=== PATIENT | male | born 1970 | race African-American/Black ===

== ENCOUNTER 2017-11-29 21:38 | Emergency (ER) | payer BC, OTHER ==
[~2017-11-29] VITALS: Ht 177.8 cm; Wt 117.9 kg
[~2017-11-29 21:38] MED LIST: BUPR150T10 PO; DIPH1TAB70 PO; FERR1TAB44 PO; FOLI1TAB16 PO; HYDR-3974 PO; LISI10TA5 PO; MESA800T PO; MONT10TA22 PO; PANT40TA4 PO; POTA10TA15 PO; PRED20TA PO; QUET25TA PO; SULF500T PO
--- NOTE | 2017-11-29 23:37 | NUR ---
PT REFUSED CT. MADE AWARE.
[2017-11-29] MEDS ORDERED: ONDANSETRON 4 MG TAB.RAPDIS ONE (23:40)
[2017-11-29] MEDS ORDERED: HYDROMORPHONE HCL 2 MG TABLET ONE (23:40)
[2017-11-29 23:43] LABS: BASOPHILS % (AUTO) 0.6 % (0.0-2.0); EOSINOPHILS % (AUTO) 3.3 % (0.0-6.0); HEMATOCRIT 36 % (39-51); HEMOGLOBIN 12.5 g/dL (13.5-17.5); LYMPHOCYTES # (AUTO) 1.8 /CMM (0.8-4.8); LYMPHOCYTES % (AUTO) 22.5 % (20.0-44.0); MEAN CORPUSCULAR HGB CONC 35 g/dl (31.0-36.0); MEAN CORPUSCULAR VOLUME 99 fL (80-96); MONOCYTES # (AUTO) 0.6 /CMM (0.1-1.30); MONOCYTES % (AUTO) 7.8 % (2.0-12.0); NEUTROPHILS # (AUTO) 5.2 /CMM (1.8-8.9); NEUTROPHILS % (AUTO) 65.8 % (43.0-81.0); PLATELET COUNT (AUTO) 242 /CMM (150-450); RDW COEFFICIENT OF VARIATION 14.3 (11.5-15.0); RED BLOOD CELL COUNT(AUTO) 3.66 MIL/uL (4.5-6.0)
[2017-11-29 23:50] VITALS: BP 134/92
[2017-11-29 23:54] LABS: CALCIUM, SERUM 9.1 mg/dL (8.5-10.1); POTASSIUM 3.7 mmol/L (3.5-5.1)
[2017-11-29] MEDS: HYDROMORPHONE HCL 2 MG TABLET PO PRN (23:54)
[2017-11-29] MEDS: ONDANSETRON 4 MG TAB.RAPDIS SL ONE (23:54)
--- NOTE | 2017-11-29 23:54 | NUR ---
PT REFUSED ALL MEDICATIONS. MADE AWARE. MEDICATIONS WASTED PER PROTOCOL WITH ENRRIQUE HOLLINS WITNESS
[2017-11-30 00:12] LABS: ALBUMIN 3.2 g/dL (3.4-5.0); BILIRUBIN,DIRECT 0.1 mg/dL (0.0-0.2); BILIRUBIN,TOTAL 0.3 mg/dL (0.2-1.0); TOTAL PROTEIN, SERUM 7.5 g/dL (6.4-8.2)
[2017-11-30 00:15] LABS: INR 0.95 (0.87-1.13)
--- NOTE | 2017-11-30 01:38 | NUR ---
pt accepted to [facility] Dr srinivasan, . Take to er. then room 605-a
--- NOTE | 2017-11-30 01:40 | NUR ---
REPORT GIVEN TO MARINA FOR ANGEL AT [facility]
== END 2017-11-30 03:47 | disposition short-term general hospital (02) ==
LOC: ER 21:40
DX: K50.911 Crohn's disease, unspecified, with rectal bleeding (principal); G89.29 Other chronic pain; D64.9 Anemia, unspecified; I10 Essential (primary) hypertension; F10.10 Alcohol abuse, uncomplicated; R79.1 Abnormal coagulation profile; F17.200 Nicotine dependence, unspecified, uncomplicated; Z88.8 Allergy status to other drugs, medicaments and biological substances; Z88.5 Allergy status to narcotic agent; Z60.2 Problems related to living alone; Z98.890 Other specified postprocedural states
CPT/HCPCS: 36415; 80048-TC; 80076-TC; 83690-TC; 85025-TC; 85730-TC; 86850-TC; A4606; Q0162; Z7610

== ENCOUNTER 2022-02-10 14:40 | Emergency (ER) | payer OTHER ==
[~2022-02-10] VITALS: Ht 177.8 cm; Wt 111.1 kg
[~2022-02-10 14:40] MED LIST changes: +BUPR-54 PO; +FERR325T23 PO; +FOLI0.8T3 PO; +HYDR-3972 PO; +LISI10TA29 PO; -LISI10TA5 PO; +MESA800T9 PO; -PANT40TA4 PO; +PANT40TA49 PO; +POTA10CA43 PO; +QUET100T PO; +SULF500T8 PO
--- NOTE | 2022-02-10 14:54 | NUR ---
TO ER BED 15. BIBS C/O RECTAL BLEEDING AND HEMATEMESIS X 4DAYS. VITALS ARE WITHIN NORMALLIMITS, NO RESP DISTRES NOTED.
--- NOTE | 2022-02-10 16:26 | NUR ---
CHAPERONED DURING PT RECTAL EXAM
[2022-02-10] MEDS ORDERED: IV NS 0.9% 1,000 ML BAG IV ONE (16:30)
[2022-02-10] MEDS ORDERED: ONDANSETRON HCL/PF 4 MG/2 ML VIAL IVP ONE (16:30)
[2022-02-10] MEDS ORDERED: CT SWABBABLE VALVE TRANS SET 1 EA INFUS.SET MC ONE (16:55)
[2022-02-10] MEDS ORDERED: IOHEXOL-300 100 ML VIAL IV ONE (16:55)
[2022-02-10] MEDS ORDERED: IV NS 0.9% 250 ML IV ONE (16:55)
[2022-02-10] MEDS ORDERED: ONDANSETRON HCL/PF 4 MG/2 ML VIAL ONE ×2 (17:32→17:47)
--- NOTE | 2022-02-10 18:01 | NUR ---
PT TAKEN TO CT VIA WHEELCHAIR
[2022-02-10 18:03] LABS: BASOPHILS # (AUTO) 0.1 K/uL (0.0-0.2); BASOPHILS % (AUTO) 0.8 % (0.0-2.0); EOSINOPHILS % (AUTO) 4.2 % (0.0-6.0); HEMATOCRIT 33 % (39-51); HEMOGLOBIN 11.2 g/dL (13.5-17.5); LYMPHOCYTES # (AUTO) 2.5 K/uL (0.8-4.8); LYMPHOCYTES % (AUTO) 24.7 % (20.0-44.0); MEAN CORPUSCULAR HGB CONC 34 g/dl (31.0-36.0); MEAN CORPUSCULAR VOLUME 99 fL (80-96); MONOCYTES # (AUTO) 0.9 K/uL (0.1-1.30); MONOCYTES % (AUTO) 9.1 % (2.0-12.0); NEUTROPHILS # (AUTO) 6.1 K/uL (1.8-8.9); NEUTROPHILS % (AUTO) 61.2 % (43.0-81.0); PLATELET COUNT (AUTO) 333 K/uL (150-450); RED BLOOD CELL COUNT(AUTO) 3.38 MIL/uL (4.5-6.0); WHITE BLOOD COUNT (AUTO) 9.9 K/uL (4.3-11.0)
[2022-02-10 18:19] LABS: ALBUMIN 3.4 g/dL (3.4-5.0); BILIRUBIN,DIRECT 0.1 mg/dL (0.0-0.2); BILIRUBIN,TOTAL 0.4 mg/dL (0.2-1.0); CALCIUM, SERUM 8.8 mg/dL (8.5-10.1); CREATININE 1.5 mg/dL (0.6-1.3); POTASSIUM 3.8 mmol/L (3.5-5.1); TOTAL PROTEIN, SERUM 8.4 g/dL (6.4-8.2)
[2022-02-10] MEDS ORDERED: HYDROMORPHONE 1 MG/1 ML DISP.SYRIN ONE (18:29)
[2022-02-10] MEDS ORDERED: HYDROMORPHONE 1 MG/1 ML DISP.SYRIN IV ONE ×2 (18:30→21:00)
[2022-02-10] MEDS ORDERED: diphenhydrAMINE HCL 50 MG/ML VIAL ONE ×2 (18:37→21:03)
--- NOTE | 2022-02-10 18:50 | NUR ---
PATIENT TAKEN FOR CT VIA [facility]
[2022-02-10] MEDS ORDERED: diphenhydrAMINE HCL 50 MG/ML VIAL IV ONE ×2 (19:00→21:00)
[2022-02-10 20:40] LABS: BILIRUBIN,URINE MODERATE (NEGATIVE); COLOR,URINE RED (YELLOW); LEUKOCYTE ESTERASE ,URINE MODERATE (NEGATIVE); NITRITE, URINE POSITIVE (NEGATIVE); PH,URINE 6.5 (5.0-8.0); PROTEIN,URINE >=300 mg/dl (NEGATIVE); UGLUCOSE 100 MG/DL mg/dL (NEGATIVE)
[2022-02-10] MEDS ORDERED: PANTOPRAZOLE 40 MG VIAL ONE (20:50)
[2022-02-10] MEDS ORDERED: CIPR500T5 PO (20:55)
[2022-02-10] MEDS ORDERED: HYDR-4209 PO (20:55)
[2022-02-10] MEDS ORDERED: PANTOPRAZOLE 40 MG VIAL IV ONE (21:00)
[2022-02-10 21:01] LABS: BACTERIA,URINE Many /HPF (None Seen); SQUAMOUS EPITHELIAL CELL,UR Moderate /HPF (None Seen)
[2022-02-10] MEDS ORDERED: diphenhydrAMINE HCL ELIX 25 MG/10 ML UDC ONE (21:03)
--- NOTE | 2022-02-10 21:15 | NUR ---
IV removed. Catheter intact and site benign. Pressure and 4x4 applied to site. No bleeding noted.
--- NOTE | 2022-02-10 21:40 | NUR ---
Patient discharged to home in stable condition. Written and verbal after care instructions given. Patient verbalizes understanding of instruction.
[2022-02-11 00:28] VITALS: BP 139/80
== END 2022-02-11 00:28 | disposition home or self-care (01) ==
LOC: ER 14:47
DX: N39.0 Urinary tract infection, site not specified (principal); K62.5 Hemorrhage of anus and rectum; R10.9 Unspecified abdominal pain; K51.90 Ulcerative colitis, unspecified, without complications; I10 Essential (primary) hypertension; F17.200 Nicotine dependence, unspecified, uncomplicated; Z88.8 Allergy status to other drugs, medicaments and biological substances; Z60.2 Problems related to living alone; Z79.899 Other long term (current) drug therapy
CPT/HCPCS: 36415; 74177; 80048; 80076; 81001; 83690; 85025; 87077; 87086; 87186; 96361; 96374; 96375; 96376; 99285; C9113; J1170; J1200 ×2; J2405; J7030; J7050; Q9967; Q0163

== ENCOUNTER 2022-05-16 11:45 | Emergency (ER) | payer OTHER ==
[~2022-05-16] VITALS: Ht 177.8 cm; Wt 113.4 kg
[~2022-05-16 11:45] MED LIST changes: +CIPR500T5 PO; -FOLI0.8T3 PO; +HYDR-4209 PO
[2022-05-16] MEDS ORDERED: ONDANSETRON HCL/PF 4 MG/2 ML VIAL IVP ONE (13:00)
[2022-05-16] MEDS ORDERED: IV NS 0.9% 1,000 ML BAG IV ONE (13:00)
[2022-05-16] MEDS ORDERED: PANTOPRAZOLE 40 MG VIAL IV ONE (13:00)
[2022-05-16] MEDS ORDERED: PANTOPRAZOLE 40 MG VIAL ONE (13:19)
[2022-05-16] MEDS ORDERED: ONDANSETRON HCL/PF 4 MG/2 ML VIAL ONE (13:19)
--- NOTE | 2022-05-16 13:29 | NUR ---
18G STARTED LATANYA PATENT NO S/S OF INFILTRATION
--- NOTE | 2022-05-16 13:30 | NUR ---
LABS DRAWN AND SENT TO LAB
[2022-05-16] MEDS ORDERED: HYDROMORPHONE 1 MG/1 ML DISP.SYRIN ONE ×2 (13:45→18:30)
[2022-05-16] MEDS ORDERED: diphenhydrAMINE HCL 25 MG CAPSULE ONE (13:45)
[2022-05-16 13:55] LABS: BASOPHILS % (AUTO) 0.5 % (0.0-2.0); EOSINOPHILS % (AUTO) 4.3 % (0.0-6.0); HEMATOCRIT 29 % (39-51); HEMOGLOBIN 9.7 g/dL (13.5-17.5); LYMPHOCYTES # (AUTO) 1.6 K/uL (0.8-4.8); LYMPHOCYTES % (AUTO) 21.6 % (20.0-44.0); MEAN CORPUSCULAR HGB CONC 33 g/dl (31.0-36.0); MEAN CORPUSCULAR VOLUME 97 fL (80-96); MONOCYTES # (AUTO) 0.6 K/uL (0.1-1.30); NEUTROPHILS # (AUTO) 4.7 K/uL (1.8-8.9); NEUTROPHILS % (AUTO) 65.6 % (43.0-81.0); PLATELET COUNT (AUTO) 302 K/uL (150-450); RED BLOOD CELL COUNT(AUTO) 3.03 MIL/uL (4.5-6.0); WHITE BLOOD COUNT (AUTO) 7.2 K/uL (4.3-11.0)
[2022-05-16] MEDS ORDERED: diphenhydrAMINE HCL 25 MG CAPSULE PO ONE (14:00)
[2022-05-16] MEDS ORDERED: HYDROMORPHONE 1 MG/1 ML DISP.SYRIN IV ONE ×2 (14:00→18:30)
[2022-05-16 14:07] LABS: CREATININE 1.4 mg/dL (0.6-1.3); POTASSIUM 3.4 mmol/L (3.5-5.1)
[2022-05-16 14:17] LABS: ALBUMIN 3.2 g/dL (3.4-5.0); BILIRUBIN,DIRECT 0.1 mg/dL (0.0-0.2); BILIRUBIN,TOTAL 0.2 mg/dL (0.2-1.0); TOTAL PROTEIN, SERUM 8.1 g/dL (6.4-8.2)
[2022-05-16] MEDS ORDERED: IV NS 0.9% 250 ML IV ONE (14:35)
[2022-05-16] MEDS ORDERED: CT SWABBABLE VALVE TRANS SET 1 EA INFUS.SET MC ONE (14:35)
[2022-05-16] MEDS ORDERED: IOHEXOL-300 100 ML VIAL IV ONE (14:35)
--- NOTE | 2022-05-16 14:43 | NUR ---
PT BEING TAKEN TO CT
[2022-05-16] MEDS ORDERED: diphenhydrAMINE HCL 50 MG/ML VIAL IV ONE (16:30)
[2022-05-16] MEDS ORDERED: diphenhydrAMINE HCL 50 MG/ML VIAL ONE (16:43)
[2022-05-16 18:22] LABS: OCCULT BLOOD STOOL POSITIVE (NEGATIVE)
[2022-05-16] MEDS ORDERED: HYDR4TAB4 PO (18:30)
[2022-05-16 19:05] VITALS: BP 134/76
== END 2022-05-16 19:08 | disposition home or self-care (01) ==
LOC: ER 11:57
DX: R10.84 Generalized abdominal pain (principal); I10 Essential (primary) hypertension; F17.200 Nicotine dependence, unspecified, uncomplicated; Z88.8 Allergy status to other drugs, medicaments and biological substances; Z60.2 Problems related to living alone; Z79.899 Other long term (current) drug therapy
CPT/HCPCS: 36569; 99285; 73130; 74177; 85025; 80048; 87045; 87015; 83690; 80076; 82272; 36415; 87493; 85730; 96376; 96361; 96374; 96375; 87427 ×3; Q0163; J1200; J2405; J7030; J7050; C9113; Q9967; J1170 ×2

== ENCOUNTER 2022-09-23 08:59 | Emergency (ER) | payer OTHER ==
[~2022-09-23] VITALS: Ht 177.8 cm; Wt 112.9 kg
[~2022-09-23 08:59] MED LIST changes: +HYDR4TAB4 PO
--- NOTE | 2022-09-23 09:20 | NUR ---
Patient AOx4 able to provide her own medical concerns. c/o abdominal and rectal pain, rectal bleed. Patient in station #12, with no signs of distress or discomfort, states pain is 10/10. Able to ambulate.
[2022-09-23] MEDS ORDERED: ONDANSETRON HCL/PF 4 MG/2 ML VIAL ONE (10:29)
[2022-09-23] MEDS ORDERED: HYDROMORPHONE 1 MG/1 ML DISP.SYRIN ONE (10:29)
[2022-09-23] MEDS ORDERED: diphenhydrAMINE HCL 50 MG CAPSULE ONE (10:30)
[2022-09-23] MEDS ORDERED: diphenhydrAMINE HCL 50 MG/ML VIAL IV ONE (10:30)
[2022-09-23] MEDS ORDERED: HYDROMORPHONE 1 MG/1 ML DISP.SYRIN IV ONE (10:30)
[2022-09-23] MEDS ORDERED: FAMOTIDINE/PF INJ 20 MG/2 ML VIAL IV ONE ×2 (10:30→10:31)
[2022-09-23] MEDS ORDERED: ONDANSETRON HCL/PF 4 MG/2 ML VIAL IVP ONE (10:30)
[2022-09-23] MEDS ORDERED: IV NS 0.9% 1,000 ML BAG IV ONE (10:30)
[2022-09-23] MEDS ORDERED: diphenhydrAMINE HCL 50 MG/ML VIAL ONE (10:31)
--- NOTE | 2022-09-23 10:35 | NUR ---
IV NS 0.9 started, NO signs of infiltration, no pain on site
[2022-09-23 10:40] LABS: BASOPHILS % (AUTO) 0.1 % (0.0-2.0); EOSINOPHILS % (AUTO) 3.6 % (0.0-6.0); HEMATOCRIT 35 % (39-51); HEMOGLOBIN 11.3 g/dL (13.5-17.5); LYMPHOCYTES # (AUTO) 2.5 K/uL (0.8-4.8); LYMPHOCYTES % (AUTO) 32.5 % (20.0-44.0); MEAN CORPUSCULAR HGB CONC 32 g/dl (31.0-36.0); MEAN CORPUSCULAR VOLUME 97 fL (80-96); MONOCYTES # (AUTO) 0.8 K/uL (0.1-1.30); MONOCYTES % (AUTO) 9.9 % (2.0-12.0); NEUTROPHILS # (AUTO) 4.1 K/uL (1.8-8.9); NEUTROPHILS % (AUTO) 53.9 % (43.0-81.0); PLATELET COUNT (AUTO) 272 K/uL (150-450); RED BLOOD CELL COUNT(AUTO) 3.63 MIL/uL (4.5-6.0); WHITE BLOOD COUNT (AUTO) 7.7 K/uL (4.3-11.0)
[2022-09-23 11:04] LABS: CALCIUM, SERUM 8.9 mg/dL (8.5-10.1); CARBON DIOXIDE 24 mmol/L (21-32); CHLORIDE 108 mmol/L (98-107); CREATININE 1.2 mg/dL (0.6-1.3); GLUCOSE 77 mg/dL (74-106); SODIUM SERUM 140 mmol/L (136-145); UREA NITROGEN, BLOOD 14 mg/dL (7-18)
[2022-09-23 11:10] LABS: ALANINE AMINOTRANSFERASE 25 U/L (12-78); ALBUMIN 3.2 g/dL (3.4-5.0); ALKALINE PHOSPHATASE 85 U/L (46-116); ASPARTATE AMINOTRANSFERASE 16 U/L (15-37); BILIRUBIN,DIRECT 0.1 mg/dL (0.0-0.2); BILIRUBIN,TOTAL 0.2 mg/dL (0.2-1.0); LIPASE 132 U/L (73-393); TOTAL PROTEIN, SERUM 8.1 g/dL (6.4-8.2)
[2022-09-23] MEDS ORDERED: HYDR28.32 TP (11:36)
[2022-09-23] MEDS ORDERED: ASPI-1420 PO (11:36)
[2022-09-23] MEDS ORDERED: LORA-259 PO (11:36)
[2022-09-23] MEDS ORDERED: APIX5TAB PO (11:36)
[2022-09-23] MEDS ORDERED: METO25TA20 PO (11:36)
[2022-09-23] MEDS ORDERED: BUSP5TAB3 PO (11:36)
--- NOTE | 2022-09-23 12:01 | NUR ---
IV removed. Catheter intact and site benign. Pressure and 4x4 applied to site. No bleeding noted.
[2022-09-23 12:05] VITALS: BP 138/86
== END 2022-09-23 12:06 | disposition home or self-care (01) ==
LOC: ER 09:06
DX: R10.84 Generalized abdominal pain (principal); I10 Essential (primary) hypertension; Z88.8 Allergy status to other drugs, medicaments and biological substances; Z79.899 Other long term (current) drug therapy
CPT/HCPCS: 99285; 74176; 96374; 96375; 96361; 93005; 85025; 80048; 83690; 80076; 36415; 84484; J1200; J3490; J2405; J7030; J1170; Q0163

== ENCOUNTER 2022-09-24 12:35 | Emergency (ER) | payer OTHER ==
[~2022-09-24] VITALS: Ht 175.3 cm; Wt 113.4 kg
[~2022-09-24 12:35] MED LIST changes: +APIX5TAB PO; +ASPI-1420 PO; -BUPR-54 PO; +BUSP5TAB3 PO; -CIPR500T5 PO; -DIPH1TAB70 PO; -FERR325T23 PO; -HYDR-3972 PO; -HYDR-3974 PO; -HYDR-4209 PO; +HYDR28.32 TP; -HYDR4TAB4 PO; -LISI10TA29 PO; +LORA-259 PO; -MESA800T9 PO; +METO25TA20 PO; -MONT10TA22 PO; -POTA10CA43 PO; -POTA10TA15 PO; -PRED20TA PO; -QUET100T PO; -SULF500T PO; -SULF500T8 PO
--- NOTE | 2022-09-24 12:50 | NUR ---
PT STATED THAT HE CAN ONLY RECIEVE IV'S ULTRASOUND, ATTEMPTED TO INSERT AN IV VIA ULTRASOUND. WHILE ATTEMPTING TO INSERT A LINE PT JERKED UP AND ALMOST CAUSING A NEEDLE STICK. DR DOMINGO NOTIFIED. LAB WILL DRAW WITH BUTTERFLY NEEDLE, LAB NOTIFIED.
[2022-09-24 13:54] LABS: CALCIUM, SERUM 9.2 mg/dL (8.5-10.1); CREATININE 1.3 mg/dL (0.6-1.3); POTASSIUM 3.7 mmol/L (3.5-5.1)
[2022-09-24 14:22] LABS: BASOPHILS % (AUTO) 0.5 % (0.0-2.0); EOSINOPHILS % (AUTO) 0.5 % (0.0-6.0); HEMATOCRIT 35 % (39-51); HEMOGLOBIN 11.5 g/dL (13.5-17.5); LYMPHOCYTES # (AUTO) 1.7 K/uL (0.8-4.8); LYMPHOCYTES % (AUTO) 18.8 % (20.0-44.0); MEAN CORPUSCULAR HGB CONC 33 g/dl (31.0-36.0); MEAN CORPUSCULAR VOLUME 96 fL (80-96); MONOCYTES # (AUTO) 0.7 K/uL (0.1-1.30); MONOCYTES % (AUTO) 7.8 % (2.0-12.0); NEUTROPHILS # (AUTO) 6.4 K/uL (1.8-8.9); NEUTROPHILS % (AUTO) 72.4 % (43.0-81.0); PLATELET COUNT (AUTO) 263 K/uL (150-450); RED BLOOD CELL COUNT(AUTO) 3.63 MIL/uL (4.5-6.0); WHITE BLOOD COUNT (AUTO) 8.8 K/uL (4.3-11.0)
--- NOTE | 2022-09-24 19:00 | NUR ---
Urine collected, labeled and sent to lab
--- NOTE | 2022-09-24 19:00 | NUR ---
URINE COLLECTED AND SENT
[2022-09-24 19:17] LABS: ACETAMINOPHEN < 10 ug/ml (10-30); ALCOHOL, BLOOD < 3 mg/dL (0-0)
--- NOTE | 2022-09-24 19:50 | NUR ---
COVID SWAB AND COVID PCR SWAB DONE AND SENT TO LAB
[2022-09-24 20:00] LABS: BILIRUBIN,URINE NEGATIVE (NEGATIVE); COLOR,URINE YELLOW (YELLOW); LEUKOCYTE ESTERASE ,URINE NEGATIVE (NEGATIVE); NITRITE, URINE NEGATIVE (NEGATIVE); PH,URINE 5.5 (5.0-8.0); PROTEIN,URINE NEGATIVE (NEGATIVE); UGLUCOSE NEGATIVE (NEGATIVE); UROBILINOGEN,URINE 0.2 EU/dL (0.2)
--- NOTE | 2022-09-24 23:05 | NUR ---
REPORT GIVEN TO XU OF [facility]
--- NOTE | 2022-09-24 23:12 | NUR ---
[facility] CALLED FOR BLS GPING TO [facility] PER JOANA ETA 75 MIN
--- NOTE | 2022-09-24 23:15 | NUR ---
Bernard diaz in ED - 09/24/22 at 2317 by [facility] ROOM 286-A. [facility] ETA 1AM. XU FROM [facility] MADE AWARE
--- NOTE | 2022-09-24 23:17 | NUR ---
[facility] ROOM 286-A. [facility] ETA 1AM. XU FROM [facility] MADE AWARE
--- NOTE | 2022-09-24 23:47 | NUR ---
REPORT GIVEN TO AVERY CAGLE OF [facility] UNIT [address]
--- NOTE | 2022-09-25 00:30 | NUR ---
TRANSFERRED TO [facility] VIA [facility]. PATIENT IS VITALLY STABLE
[2022-09-25 01:08] VITALS: BP 134/79
== END 2022-09-25 01:09 | disposition short-term general hospital (02) ==
LOC: ER 14:00
DX: R07.9 Chest pain, unspecified (principal); R45.851 Suicidal ideations; Z20.822 Contact with and (suspected) exposure to COVID-19; G89.29 Other chronic pain; R10.9 Unspecified abdominal pain; Z79.82 Long term (current) use of aspirin; Z79.899 Other long term (current) drug therapy; Z88.5 Allergy status to narcotic agent; Z88.8 Allergy status to other drugs, medicaments and biological substances; I10 Essential (primary) hypertension; K50.90 Crohn's disease, unspecified, without complications
CPT/HCPCS: 99285; 93005; 71045; 85025; 80048; 81003; 36415; 84484 ×3; 87426; 80143; 80320; 80307; U0003; C9803; G0480; J3490

== ENCOUNTER 2022-10-08 22:45 | Emergency (ER) | payer OTHER ==
[~2022-10-08] VITALS: Ht 177.8 cm; Wt 112.9 kg
--- NOTE | 2022-10-09 00:18 | NUR ---
BIBS. MEDICAL CLEARANCE. VOLUNTARY ADMISSION. SUICIDAL HEARING VOICES TO CUT WRIST. PT A/ox3. TOLERATING R/A WELL WITH NO RESP DISTERSS. PT CHANGED IN GOWN, BELONGINGS COLLECTED, AND PLACED IN LOCKER. WANDED BY SECURITY. SAFETY MEASURES IN PLACE,
--- NOTE | 2022-10-09 00:33 | NUR ---
COVID ANTIGEN SWAB COLLECTED AND SENT TO LAB
--- NOTE | 2022-10-09 00:33 | NUR ---
URINE COLLECTED AND SENT TO LAB
--- NOTE | 2022-10-09 00:43 | NUR ---
SOURCE INSPECTOR AT PT'S BEDSIDE
[2022-10-09 01:37] LABS: BILIRUBIN,URINE NEGATIVE (NEGATIVE); COLOR,URINE YELLOW (YELLOW); LEUKOCYTE ESTERASE ,URINE NEGATIVE (NEGATIVE); NITRITE, URINE NEGATIVE (NEGATIVE); PROTEIN,URINE NEGATIVE (NEGATIVE); UGLUCOSE NEGATIVE (NEGATIVE); UROBILINOGEN,URINE 0.2 EU/dL (0.2)
[2022-10-09 02:02] LABS: RBC,URINE 0-2 /HPF (0-2)
[2022-10-09 02:03] LABS: BACTERIA,URINE Rare /HPF (None Seen); SQUAMOUS EPITHELIAL CELL,UR Few /HPF (None Seen)
[2022-10-09 03:21] LABS: BASOPHILS % (AUTO) 0.5 % (0.0-2.0); EOSINOPHILS % (AUTO) 4.8 % (0.0-6.0); HEMATOCRIT 33 % (39-51); HEMOGLOBIN 10.8 g/dL (13.5-17.5); LYMPHOCYTES # (AUTO) 1.5 K/uL (0.8-4.8); LYMPHOCYTES % (AUTO) 21.9 % (20.0-44.0); MEAN CORPUSCULAR HGB CONC 33 g/dl (31.0-36.0); MEAN CORPUSCULAR VOLUME 96 fL (80-96); MONOCYTES # (AUTO) 0.5 K/uL (0.1-1.30); MONOCYTES % (AUTO) 6.7 % (2.0-12.0); NEUTROPHILS # (AUTO) 4.7 K/uL (1.8-8.9); NEUTROPHILS % (AUTO) 66.1 % (43.0-81.0); PLATELET COUNT (AUTO) 252 K/uL (150-450)
[2022-10-09 03:31] LABS: CALCIUM, SERUM 8.9 mg/dL (8.5-10.1); CARBON DIOXIDE 28 mmol/L (21-32); CHLORIDE 107 mmol/L (98-107); CREATININE 0.9 mg/dL (0.6-1.3); GLUCOSE 117 mg/dL (74-106); POTASSIUM 3.5 mmol/L (3.5-5.1); SODIUM SERUM 140 mmol/L (136-145); UREA NITROGEN, BLOOD 12 mg/dL (7-18)
[2022-10-09 03:36] LABS: ALANINE AMINOTRANSFERASE 20 U/L (12-78); ALBUMIN 3.1 g/dL (3.4-5.0); ALCOHOL, BLOOD < 3 mg/dL (0-0); ALKALINE PHOSPHATASE 82 U/L (46-116); ASPARTATE AMINOTRANSFERASE 20 U/L (15-37); BILIRUBIN,DIRECT 0.2 mg/dL (0.0-0.2); BILIRUBIN,TOTAL 0.4 mg/dL (0.2-1.0); TOTAL PROTEIN, SERUM 7.7 g/dL (6.4-8.2)
--- NOTE | 2022-10-09 11:08 | NUR ---
waiting for a private room for this patient.
[2022-10-09] MEDS ORDERED: APIXABAN 5 MG TABLET PO SCH (12:30)
--- NOTE | 2022-10-09 13:08 | NUR ---
PT ACCEPTED TO [facility] ROOM [address] UNDER THE CARE OF DR. ESCALANTE. NUMBER FOR REPORT [phone], TRANSPORT WILL BE ARRANGED BY [facility].
--- NOTE | 2022-10-09 13:21 | NUR ---
TRANSPORT WILL COLLECT IN 10 MINS.
[2022-10-09 13:31] VITALS: BP 151/88
--- NOTE | 2022-10-09 13:49 | NUR ---
PATIENT PICKED UP BY [facility] PERSONNEL IN STABLE CONDITION. ALL BELONGINGS BROUGHT WITH THE PATIENT. CLINICALS PROVIDED TO BE GIVEN TO FACILITY.
== END 2022-10-09 13:51 ==
LOC: ER 22:46
DX: R45.851 Suicidal ideations (principal); F19.10 Other psychoactive substance abuse, uncomplicated; Z88.8 Allergy status to other drugs, medicaments and biological substances; Z88.5 Allergy status to narcotic agent; I10 Essential (primary) hypertension; Z20.822 Contact with and (suspected) exposure to COVID-19; K50.90 Crohn's disease, unspecified, without complications; Z79.01 Long term (current) use of anticoagulants; Z79.82 Long term (current) use of aspirin; Z79.899 Other long term (current) drug therapy; Z90.49 Acquired absence of other specified parts of digestive tract; R44.0 Auditory hallucinations
CPT/HCPCS: 99285; 85025; 80048; 87086; 80076; 81001; 36415; 87426; 80143; 80320; 80307; C9803; G0480

== ENCOUNTER 2022-11-18 09:43 | Emergency (ER) | payer OTHER ==
[~2022-11-18] VITALS: Ht 177.8 cm; Wt 112.9 kg
[2022-11-18] MEDS ORDERED: ONDANSETRON HCL/PF 4 MG/2 ML VIAL IV ONE (10:00)
[2022-11-18] MEDS ORDERED: IV NS 0.9% 1,000 ML IV ONE (10:00)
--- NOTE | 2022-11-18 10:35 | NUR ---
bibemt CC ABDOMINAL PAIN WITH BLD ON STOOL AND URINE FEW HOURS PTC. MD AT BEDSIDE NPC DONE HOOKED TO MONITOR
--- NOTE | 2022-11-18 10:45 | NUR ---
urine collected sent to lab
--- NOTE | 2022-11-18 10:45 | NUR ---
iv inserted lh 20g
--- NOTE | 2022-11-18 11:14 | NUR ---
pt refusing iv start. requesting for pain medication, dr atkinson aware. no new order as of now.
[2022-11-18] MEDS ORDERED: ONDANSETRON HCL/PF 4 MG/2 ML VIAL ONE (11:17)
--- NOTE | 2022-11-18 11:26 | NUR ---
iv push zofran slowly and hooked to iv fluid stop time 1217
[2022-11-18 11:37] LABS: BASOPHILS % (AUTO) 0.4 % (0.0-2.0); EOSINOPHILS % (AUTO) 4.4 % (0.0-6.0); HEMATOCRIT 32 % (39-51); HEMOGLOBIN 10.7 g/dL (13.5-17.5); LYMPHOCYTES # (AUTO) 1.6 K/uL (0.8-4.8); LYMPHOCYTES % (AUTO) 23.6 % (20.0-44.0); MEAN CORPUSCULAR HGB CONC 33 g/dl (31.0-36.0); MEAN CORPUSCULAR VOLUME 99 fL (80-96); MONOCYTES # (AUTO) 0.6 K/uL (0.1-1.30); MONOCYTES % (AUTO) 8.4 % (2.0-12.0); NEUTROPHILS # (AUTO) 4.2 K/uL (1.8-8.9); NEUTROPHILS % (AUTO) 63.2 % (43.0-81.0); PLATELET COUNT (AUTO) 252 K/uL (150-450); RED BLOOD CELL COUNT(AUTO) 3.26 MIL/uL (4.5-6.0); WHITE BLOOD COUNT (AUTO) 6.7 K/uL (4.3-11.0)
[2022-11-18 11:41] LABS: BILIRUBIN,URINE 1+ (NEGATIVE); COLOR,URINE RED (YELLOW); LEUKOCYTE ESTERASE ,URINE 2+ (NEGATIVE); NITRITE, URINE POSITIVE (NEGATIVE); PROTEIN,URINE 3+ mg/dl (NEGATIVE); UGLUCOSE NEGATIVE (NEGATIVE)
--- NOTE | 2022-11-18 11:45 | NUR ---
IV REINSERTED LATANYA
--- NOTE | 2022-11-18 11:50 | NUR ---
PT IV MIDLINE REPOSITIONED, AT PRESENT IVF FREE FLOWING . EDWARDO OSUNA AT BEDSIDE
[2022-11-18 11:56] LABS: CALCIUM, SERUM 8.7 mg/dL (8.5-10.1); CARBON DIOXIDE 26 mmol/L (21-32); CHLORIDE 110 mmol/L (98-107); CREATININE 0.7 mg/dL (0.6-1.3); GLUCOSE 87 mg/dL (74-106); POTASSIUM 5.8 mmol/L (3.5-5.1); SODIUM SERUM 141 mmol/L (136-145); UREA NITROGEN, BLOOD 10 mg/dL (7-18)
[2022-11-18 12:02] LABS: ALANINE AMINOTRANSFERASE 25 U/L (12-78); ALBUMIN 2.7 g/dL (3.4-5.0); ALKALINE PHOSPHATASE 71 U/L (46-116); ASPARTATE AMINOTRANSFERASE 70 U/L (15-37); BILIRUBIN,TOTAL 0.5 mg/dL (0.2-1.0); LIPASE 105 U/L (73-393); TOTAL PROTEIN, SERUM 7.4 g/dL (6.4-8.2)
--- NOTE | 2022-11-18 12:06 | NUR ---
PT IS GETTING AGITATED AND CLAIMS IN PAIN. SHE WANTS TO BE SEEN RIGHT AWAY MADE AWARE
--- NOTE | 2022-11-18 12:17 | NUR ---
MD AWARE OF MORPHINE ALLERGY . AWAITING FOR ORDERS. NPC CONTINUES
[2022-11-18] MEDS ORDERED: FENTANYL PF 100MCG/2ML AMPUL ONE (12:22)
[2022-11-18 12:26] VITALS: BP 136/88
--- NOTE | 2022-11-18 12:26 | NUR ---
PT STILL C/O SEVERE PAIN, DR ABDUL AWARE. MEDICATED ORDERED. SEE EMAR. VITAL SIGNS UPDATED.
[2022-11-18] MEDS ORDERED: CEFTRIAXONE 1GM BAG (ER ONLY) 50 ML IV ONE ×2 (12:28→12:32)
[2022-11-18] MEDS ORDERED: FENTANYL PF 100MCG/2ML AMPUL IV ONE (12:30)
[2022-11-18] MEDS ORDERED: CEFTRIAXONE 1 G in IV D5W 50 ML IV ONE (12:30)
--- NOTE | 2022-11-18 12:40 | NUR ---
ROCEPHINE HOOKED TO IVF. CONVEYANCER AT BEDSIDE TO CT SCAN VIA GURNEY
[2022-11-18] MEDS ORDERED: CT SWABBABLE VALVE TRANS SET 1 EA INFUS.SET MC ONE ×2 (12:44→15:56)
[2022-11-18] MEDS ORDERED: IOHEXOL-350 100 ML VIAL IV ONE ×4 (12:44→16:57)
[2022-11-18 12:52] LABS: RBC,URINE 51-80 /HPF (0-2)
[2022-11-18 12:53] LABS: BACTERIA,URINE Many /HPF (None Seen); SQUAMOUS EPITHELIAL CELL,UR Few /HPF (None Seen)
--- NOTE | 2022-11-18 13:38 | NUR ---
pt back from ct via radha
--- NOTE | 2022-11-18 13:45 | NUR ---
philosophy instructor and phleb tech at bedside
--- NOTE | 2022-11-18 13:50 | NUR ---
pt does not to be hooked to monitor , pt refused to be inserted with iv and requesting to see DR ABDUL. MADE AWARE OF REQUEST.
[2022-11-18 14:07] LABS: ACETAMINOPHEN < 10 ug/ml (10-30); ALCOHOL, BLOOD < 10 mg/dL (0-0)
--- NOTE | 2022-11-18 14:30 | NUR ---
PT C/O BLD ON STOOL/ INSISTING PRESENCE OF BLOOD AND SHE WANTS TO SEE EMD. EMD MADE AWARE
--- NOTE | 2022-11-18 14:52 | NUR ---
pt asleep on her LSIDE
--- NOTE | 2022-11-18 15:42 | NUR ---
pt is requesting to be seen by . is aware
--- NOTE | 2022-11-18 15:50 | NUR ---
[address] by britt via radha
[2022-11-18] MEDS ORDERED: IV NS 0.9% 250 ML IV ONE ×2 (15:56→16:57)
[2022-11-18] MEDS ORDERED: CEPH500C2 PO (16:12)
--- NOTE | 2022-11-18 16:22 | NUR ---
pt back from cta midline blew, asking to be seen by a new doctor. DR. DOMINGO MADE AWARE
[2022-11-18 16:32] LABS: D-DIMER 1.09 mg/L(FEU (0.17-0.50)
[2022-11-18] MEDS ORDERED: HYDROMORPHONE 1 MG/1 ML DISP.SYRIN ONE (16:52)
[2022-11-18] MEDS ORDERED: HYDROMORPHONE 1 MG/1 ML DISP.SYRIN IV ONE (17:00)
--- NOTE | 2022-11-18 17:00 | NUR ---
PT TO CT WITH EDWARDO OSUNA AND TECH VIA LINUS
--- NOTE | 2022-11-18 18:49 | NUR ---
NAZARIO CONNOR SENT TO LAB
--- NOTE | 2022-11-18 18:55 | NUR ---
ELASTIC BANDAGE APPLIED TO L ANKLE BY TECH. PT IS FOR DISCHARGE AFTER
--- NOTE | 2022-11-18 19:37 | NUR ---
FACESHEET AND CLINICALS FAXED TO [facility].
[2022-11-18] MEDS ORDERED: diphenhydrAMINE HCL 25 MG CAPSULE ONE (19:58)
[2022-11-18] MEDS ORDERED: diphenhydrAMINE HCL 25 MG CAPSULE PO ONE (20:00)
--- NOTE | 2022-11-18 20:00 | NUR ---
[facility] AT BEDSIDE FOR TRANSPORT TO [facility].
== END 2022-11-18 20:00 ==
LOC: ER 11:30
DX: N39.0 Urinary tract infection, site not specified (principal); F32.A Depression, unspecified; R07.89 Other chest pain; R19.7 Diarrhea, unspecified; R11.2 Nausea with vomiting, unspecified; I10 Essential (primary) hypertension; Z98.890 Other specified postprocedural states; F17.200 Nicotine dependence, unspecified, uncomplicated; Z60.2 Problems related to living alone; Z79.899 Other long term (current) drug therapy; Z79.82 Long term (current) use of aspirin; Z20.822 Contact with and (suspected) exposure to COVID-19; Z88.1 Allergy status to other antibiotic agents
CPT/HCPCS: 99285; 96374; 96365; 96361; 96375; 93005 ×2; 36410; 71045; 71275 ×2; 74176; 85025; 80048; 87086; 83690; 80076; 85378; 81001; 36415; 84484; 85730; 86850; 87426; 80143; 80320; 80307; Q0163; J3010; J0696; J2405; J7060; J7030; J7050 ×2; Q9967 ×2; J1170; C9803; G0480

== ENCOUNTER 2022-12-25 19:03 | Emergency (ER) | payer OTHER ==
[~2022-12-25] VITALS: Ht 177.8 cm; Wt 123.4 kg
[~2022-12-25 19:03] MED LIST changes: +CEPH500C2 PO
[2022-12-25] MEDS ORDERED: IV NS 0.9% 1,000 ML BAG IV ONE (19:30)
[2022-12-25] MEDS ORDERED: ONDANSETRON HCL/PF 4 MG/2 ML VIAL IVP ONE (19:30)
[2022-12-25] MEDS ORDERED: HYDROMORPHONE INJ 2 MG/ML DISP.SYRIN IV ONE (19:30)
[2022-12-25] MEDS ORDERED: PANTOPRAZOLE 40 MG VIAL IV ONE (19:30)
--- NOTE | 2022-12-25 19:35 | NUR ---
EMT AT BEDSIDE FOR EKG
[2022-12-25] MEDS ORDERED: CT SWABBABLE VALVE TRANS SET 1 EA INFUS.SET MC ONE (19:56)
[2022-12-25] MEDS ORDERED: IV NS 0.9% 250 ML IV ONE (19:56)
[2022-12-25] MEDS ORDERED: IOHEXOL-300 100 ML VIAL IV ONE (19:56)
[2022-12-25] MEDS ORDERED: PANTOPRAZOLE 40 MG VIAL ONE (20:07)
[2022-12-25] MEDS ORDERED: HYDROMORPHONE 1 MG/1 ML DISP.SYRIN ONE (20:07)
[2022-12-25] MEDS ORDERED: ONDANSETRON HCL/PF 4 MG/2 ML VIAL ONE (20:07)
--- NOTE | 2022-12-25 20:15 | NUR ---
20G STARTED IN RIGHT UPPER ARM. BLOOD DRAWN AND SENT TO LAB
--- NOTE | 2022-12-25 20:25 | NUR ---
PT AT CT
[2022-12-25 20:27] LABS: BASOPHILS # (AUTO) 0.1 K/uL (0.0-0.2); BASOPHILS % (AUTO) 0.7 % (0.0-2.0); EOSINOPHILS % (AUTO) 2.7 % (0.0-6.0); HEMATOCRIT 34 % (39-51); HEMOGLOBIN 11.2 g/dL (13.5-17.5); LYMPHOCYTES # (AUTO) 1.5 K/uL (0.8-4.8); LYMPHOCYTES % (AUTO) 22.2 % (20.0-44.0); MEAN CORPUSCULAR HGB CONC 33 g/dl (31.0-36.0); MEAN CORPUSCULAR VOLUME 102 fL (80-96); MONOCYTES # (AUTO) 0.6 K/uL (0.1-1.30); MONOCYTES % (AUTO) 9.1 % (2.0-12.0); NEUTROPHILS # (AUTO) 4.4 K/uL (1.8-8.9); NEUTROPHILS % (AUTO) 65.3 % (43.0-81.0); PLATELET COUNT (AUTO) 253 K/uL (150-450); RED BLOOD CELL COUNT(AUTO) 3.32 MIL/uL (4.5-6.0); WHITE BLOOD COUNT (AUTO) 6.8 K/uL (4.3-11.0)
--- NOTE | 2022-12-25 20:36 | NUR ---
PT IN BED 12, A/OX4 BREATHING IS EVEN AND UNLABORED, C/O AB PAIN AND LOOSE BLOODY STOOL. PT HAS Hx OF CROHNS DZ RECENTLY HAD A COLONOSCOPY AT [facility]. PT CONNECTED TO BEDISDE MONITOR BED ZAHIRA LOWEST POSTION AND LOCKED IN FOWLERS POSITION.
[2022-12-25 20:43] LABS: CALCIUM, SERUM 9.1 mg/dL (8.5-10.1); CARBON DIOXIDE 32 mmol/L (21-32); CHLORIDE 108 mmol/L (98-107); CREATININE 1.2 mg/dL (0.6-1.3); GLUCOSE 104 mg/dL (74-106); POTASSIUM 3.6 mmol/L (3.5-5.1); SODIUM SERUM 144 mmol/L (136-145); UREA NITROGEN, BLOOD 10 mg/dL (7-18)
[2022-12-25 20:49] LABS: ALANINE AMINOTRANSFERASE 37 U/L (12-78); ALBUMIN 2.9 g/dL (3.4-5.0); ALKALINE PHOSPHATASE 76 U/L (46-116); ASPARTATE AMINOTRANSFERASE 24 U/L (15-37); BILIRUBIN,DIRECT 0.1 mg/dL (0.0-0.2); BILIRUBIN,TOTAL 0.3 mg/dL (0.2-1.0); LIPASE 78 U/L (73-393); TOTAL PROTEIN, SERUM 7.4 g/dL (6.4-8.2)
--- NOTE | 2022-12-25 20:56 | NUR ---
COVID SWAB TAKEN AND SENT TO LAB
[2022-12-25 21:10] LABS: BAND % (MANUAL) 1 % (0.0-5.0); EOSINOPHILS % (MANUAL) 5 % (0-4); LYMPHOCYTES % (MANUAL) 21 % (16-48); MONOCYTES % (MANUAL) 8 % (0-11.0); NEUTROPHILS % (MANUAL) 65 (42-76)
[2022-12-25] MEDS ORDERED: ACETAMINOPHEN ES 500 MG TABLET ONE (21:24)
[2022-12-25] MEDS ORDERED: ACETAMINOPHEN 325 MG TABLET PO ONE (21:30)
[2022-12-25] MEDS ORDERED: ONDA4TAB5 PO (22:34)
[2022-12-25 23:34] LABS: BILIRUBIN,URINE NEGATIVE (NEGATIVE); COLOR,URINE YELLOW (YELLOW); LEUKOCYTE ESTERASE ,URINE NEGATIVE (NEGATIVE); NITRITE, URINE NEGATIVE (NEGATIVE); PROTEIN,URINE NEGATIVE (NEGATIVE); UGLUCOSE NEGATIVE (NEGATIVE); UROBILINOGEN,URINE 0.2 EU/dL (0.2)
--- NOTE | 2022-12-26 00:01 | NUR ---
IV removed. Catheter intact and site benign. Pressure and 4x4 applied to site. No bleeding noted.Patient discharged to home in stable condition. Written and verbal after care instructions given. Patient verbalizes understanding of instruction.
[2022-12-26 00:43] VITALS: BP 139/98
== END 2022-12-26 00:43 | disposition home or self-care (01) ==
LOC: ER 19:07
DX: K50.90 Crohn's disease, unspecified, without complications (principal); R10.10 Upper abdominal pain, unspecified; I10 Essential (primary) hypertension; F17.200 Nicotine dependence, unspecified, uncomplicated; K62.5 Hemorrhage of anus and rectum; R11.2 Nausea with vomiting, unspecified; R19.7 Diarrhea, unspecified; R07.89 Other chest pain; E66.9 Obesity, unspecified; D53.9 Nutritional anemia, unspecified; N28.1 Cyst of kidney, acquired; M16.12 Unilateral primary osteoarthritis, left hip; Z79.899 Other long term (current) drug therapy; Z79.82 Long term (current) use of aspirin; Z68.39 Body mass index [BMI] 39.0-39.9, adult; Z20.822 Contact with and (suspected) exposure to COVID-19; Z88.1 Allergy status to other antibiotic agents
CPT/HCPCS: 99285; 74177; 96374; 71045; 96375; 96361; 87426; 93005; 85025; 80048; 83690; 80076; 81003; 36415; 84484 ×2; 85007; J2405; J7030; J7050; C9113; Q9967; J1170; C9803

== ENCOUNTER 2022-12-26 01:01 | Emergency (ER) | payer OTHER ==
[~2022-12-26 01:01] MED LIST changes: +ONDA4TAB5 PO
--- NOTE | 2022-12-26 01:09 | NUR ---
PT LEFT BEFORE SEEING
== END 2022-12-26 01:10 | disposition left against medical advice (07) ==
LOC: ER 01:04
DX: Z53.21 Procedure and treatment not carried out due to patient leaving prior to being seen by health care provider (principal)

== ENCOUNTER 2023-02-03 17:02 | Emergency (ER) | payer OTHER ==
[~2023-02-03] VITALS: Ht 177.8 cm; Wt 123.4 kg
--- NOTE | 2023-02-03 17:16 | NUR ---
Sourav from [facility]. c/o pain upon urination and noticed blood on urine today. pt denies any flank pain. Breathing even and unlabored. pt connected to the monitor. vital signs wnl. awaiting md for eval.
--- NOTE | 2023-02-03 17:17 | NUR ---
iv access established, 20g right ac. blood drawn and sent to lab
[2023-02-03] MEDS ORDERED: HYDROMORPHONE 1 MG/1 ML DISP.SYRIN IV ONE ×2 (17:30→20:00)
[2023-02-03] MEDS ORDERED: IV NS 0.9% 1,000 ML IV ONE (17:30)
[2023-02-03] MEDS ORDERED: ONDANSETRON HCL/PF - ER 4 MG/2 ML VIAL IV ONE (17:30)
[2023-02-03] MEDS ORDERED: IV NS 0.9% 1,000 ML BAG IV ONE (17:30)
[2023-02-03] MEDS ORDERED: ONDANSETRON HCL/PF 4 MG/2 ML VIAL ONE (17:47)
[2023-02-03] MEDS ORDERED: HYDROMORPHONE 1 MG/1 ML DISP.SYRIN ONE ×2 (17:48→19:57)
[2023-02-03 17:50] LABS: BASOPHILS % (AUTO) 0.2 % (0.0-2.0); EOSINOPHILS % (AUTO) 0.5 % (0.0-6.0); HEMATOCRIT 32 % (39-51); HEMOGLOBIN 10.5 g/dL (13.5-17.5); LYMPHOCYTES # (AUTO) 0.3 K/uL (0.8-4.8); LYMPHOCYTES % (AUTO) 3.7 % (20.0-44.0); MEAN CORPUSCULAR HGB CONC 33 g/dl (31.0-36.0); MEAN CORPUSCULAR VOLUME 100 fL (80-96); MONOCYTES # (AUTO) 0.3 K/uL (0.1-1.30); MONOCYTES % (AUTO) 3.3 % (2.0-12.0); NEUTROPHILS # (AUTO) 7.4 K/uL (1.8-8.9); NEUTROPHILS % (AUTO) 92.3 % (43.0-81.0); PLATELET COUNT (AUTO) 251 K/uL (150-450)
[2023-02-03 17:59] LABS: CALCIUM, SERUM 8.7 mg/dL (8.5-10.1); CREATININE 1.3 mg/dL (0.6-1.3); POTASSIUM 3.8 mmol/L (3.5-5.1)
[2023-02-03 18:04] LABS: ALBUMIN 2.6 g/dL (3.4-5.0); BILIRUBIN,DIRECT 0.2 mg/dL (0.0-0.2); BILIRUBIN,TOTAL 0.6 mg/dL (0.2-1.0); TOTAL PROTEIN, SERUM 7.6 g/dL (6.4-8.2)
--- NOTE | 2023-02-03 18:11 | NUR ---
urine sample collected and sent to lab
[2023-02-03 19:42] LABS: BILIRUBIN,URINE NEGATIVE (NEGATIVE); COLOR,URINE YELLOW (YELLOW); LEUKOCYTE ESTERASE ,URINE TRACE (NEGATIVE); NITRITE, URINE NEGATIVE (NEGATIVE); PROTEIN,URINE NEGATIVE (NEGATIVE); UGLUCOSE NEGATIVE (NEGATIVE); UROBILINOGEN,URINE 0.2 EU/dL (0.2)
--- NOTE | 2023-02-03 19:43 | NUR ---
COVID SWAB COLLECTED AND SENT TO LAB.
[2023-02-03 19:48] LABS: RBC,URINE 51-80 /HPF (0-2)
[2023-02-03 19:49] LABS: BACTERIA,URINE 1+ /HPF (None Seen)
[2023-02-03] MEDS ORDERED: NITR100C PO ×2 (20:14→20:22)
--- NOTE | 2023-02-03 20:39 | NUR ---
CALLED [facility] AT [phone] TO SEND THE PT BACK TO [facility]. SHE WILL CALL ME BACK
--- NOTE | 2023-02-04 06:38 | NUR ---
PT SLEEPING RR EVEN AND NONLABORED. SAFETY MEASURES IN PLACE
--- NOTE | 2023-02-04 13:39 | NUR ---
SW faxed clinicals to [facility] to Rishabh F:[phone]
--- NOTE | 2023-02-04 15:26 | NUR ---
Rishabh from [facility] requested a psych clearance. [employer] faxed crisis note to Rishabh. Waiting for response.
--- NOTE | 2023-02-04 16:25 | NUR ---
PT ACCEPTED AT [facility]. GIVE REPORT TO [phone], CALL AT [phone]. DR. ESCALANTE ACCEPTING
--- NOTE | 2023-02-04 20:00 | NUR ---
REPORT GIVEN TO RAVINDER FROM [facility] [phone] REQUESTING FOR TROPONIN AND EKG. AWAITING TO REPORT RESULTS BACK TO [facility] IN ORDER TO ACCEPT PT.
--- NOTE | 2023-02-04 20:07 | NUR ---
[facility] PICKUP ETA [phone]
--- NOTE | 2023-02-04 20:24 | NUR ---
canceled [facility] transport, so [facility] needs more tests before they can accept
--- NOTE | 2023-02-04 21:00 | NUR ---
covid swab collected and submitted to lab
[2023-02-04] MEDS ORDERED: CEFTRIAXONE 1 G VIAL IM ONE (22:00)
[2023-02-04] MEDS ORDERED: CEFTRIAXONE 1 G VIAL ONE (22:13)
[2023-02-04] MEDS ORDERED: IBUPROFEN 600 MG TABLET ONE (22:13)
[2023-02-04] MEDS ORDERED: LIDOCAINE 1% INJ 50 ML MDV IJ ONE (22:14)
[2023-02-04] MEDS: IBUPROFEN 600 MG TABLET PO ONE ×3 (22:17→22:26)
--- NOTE | 2023-02-05 00:28 | NUR ---
FAXED NEW LABS AND COVID AND EKG TO [facility]
--- NOTE | 2023-02-05 00:48 | NUR ---
REPORT GIVEN TO AT [facility]. PT GOT ACCEPTED BY [facility]
--- NOTE | 2023-02-05 00:48 | NUR ---
[facility] CALLED FOR BLS GOING TO [facility] PER [facility]PATCH ETA 45- 60 MIN
--- NOTE | 2023-02-05 01:12 | NUR ---
[facility] AT PT'S BEDSIDE TO TRANSFER PT TO [facility]
--- NOTE | 2023-02-05 01:15 | NUR ---
TRANSFERRED TO [facility] IN STABLE CONDITION
[2023-02-05 01:16] VITALS: BP 119/68
== END 2023-02-05 01:15 ==
LOC: ER 17:04
DX: N39.0 Urinary tract infection, site not specified (principal); I10 Essential (primary) hypertension; F17.200 Nicotine dependence, unspecified, uncomplicated; Z98.890 Other specified postprocedural states; Z60.2 Problems related to living alone; Z79.899 Other long term (current) drug therapy; Z20.822 Contact with and (suspected) exposure to COVID-19; Z79.82 Long term (current) use of aspirin; Z88.5 Allergy status to narcotic agent; Z88.1 Allergy status to other antibiotic agents
CPT/HCPCS: 99285; 96374; 96361; 96375; 93005; 96376; 74176; 85025; 80048; 83690; 80076; 81001; 36415 ×2; 84484; 87426 ×2; 80320; 80307; 96372; J2405 ×2; J7030; J1170 ×2; C9803 ×2; J3490; J0696; G0480

== ENCOUNTER 2023-03-31 11:34 | Inpatient (IN) | payer OTHER ==
[~2023-03-31] VITALS: Ht 177.8 cm; Wt 122.5 kg
[~2023-03-31 11:34] MED LIST changes: +NITR100C PO
[2023-03-31 12:17] LABS: BASOPHILS % (AUTO) 0.3 % (0.0-2.0); EOSINOPHILS # (AUTO) 0.2 K/uL (0.0-0.7); EOSINOPHILS % (AUTO) 1.5 % (0.0-6.0); HEMATOCRIT 35 % (39-51); HEMOGLOBIN 11.5 g/dL (13.5-17.5); LYMPHOCYTES # (AUTO) 1.4 K/uL (0.8-4.8); LYMPHOCYTES % (AUTO) 12.5 % (20.0-44.0); MEAN CORPUSCULAR HEMOGLOBIN 33 PG (26.0-33.0); MEAN CORPUSCULAR HGB CONC 33 g/dl (31.0-36.0); MEAN CORPUSCULAR VOLUME 101 fL (80-96); MONOCYTES % (AUTO) 9.1 % (2.0-12.0); NEUTROPHILS # (AUTO) 8.6 K/uL (1.8-8.9); NEUTROPHILS % (AUTO) 76.6 % (43.0-81.0); PLATELET COUNT (AUTO) 192 K/uL (150-450); RED BLOOD CELL COUNT(AUTO) 3.46 MIL/uL (4.5-6.0); RED CELL DISTRIBUTION WIDTH 14.3 % (11.5-15.0); WHITE BLOOD COUNT (AUTO) 11.2 K/uL (4.3-11.0)
[2023-03-31 12:43] LABS: ALBUMIN 3.6 g/dL (3.4-5.0); BILIRUBIN,DIRECT 0.2 mg/dL (0.0-0.2); BILIRUBIN,TOTAL 0.5 mg/dL (0.2-1.0); CALCIUM, SERUM 8.5 mg/dL (8.5-10.1); POTASSIUM 3.1 mmol/L (3.5-5.1); TOTAL PROTEIN, SERUM 8.8 g/dL (6.4-8.2)
[2023-03-31 12:44] LABS: CREATININE 8.9 mg/dL (0.6-1.3)
[2023-03-31] MEDS ORDERED: ONDANSETRON HCL/PF 4 MG/2 ML VIAL IV ONE (13:00)
[2023-03-31] MEDS ORDERED: diphenhydrAMINE HCL 50 MG/ML VIAL IV ONE (13:00)
[2023-03-31] MEDS ORDERED: HYDROMORPHONE 1 MG/1 ML DISP.SYRIN IV ONE (13:00)
[2023-03-31] MEDS ORDERED: IV NS 0.9% 1,000 ML IV ONE (13:00)
[2023-03-31] MEDS ORDERED: CEFTRIAXONE 1 G in IV D5W 50 ML IV ONE (14:00)
[2023-03-31] MEDS ORDERED: methylPREDNISolone SOD SUCC 125 MG/2ML VIAL IV ONE (14:00)
[2023-03-31] MEDS ORDERED: FLAGYL/NS RTU 500 MG/100 ML PIGGYBACK IV ONE (14:00)
[2023-03-31] MEDS ORDERED: VANCOMYCIN 1 GM in IV D5W 250 ML IV ONE (14:00)
[2023-03-31 14:10] LABS: OCCULT BLOOD STOOL NEGATIVE (NEGATIVE)
[2023-03-31] MEDS ORDERED: diphenhydrAMINE HCL 50 MG/ML VIAL ONE (14:22)
[2023-03-31] MEDS ORDERED: HYDROMORPHONE 1 MG/1 ML DISP.SYRIN ONE (14:22)
[2023-03-31] MEDS ORDERED: ONDANSETRON HCL/PF 4 MG/2 ML VIAL ONE (14:22)
[2023-03-31] MEDS ORDERED: methylPREDNISolone SOD SUCC 125 MG/2ML VIAL ONE (14:36)
[2023-03-31] MEDS ORDERED: LISI40TA13 PO (14:43)
[2023-03-31] MEDS ORDERED: CHOL100043 PO (14:43)
[2023-03-31] MEDS ORDERED: CYAN-51 PO (14:43)
[2023-03-31] MEDS ORDERED: Z GUARD REMEDY 4 OZ OINT TP PRN (15:00)
[2023-03-31] MEDS ORDERED: LORAZEPAM 1 MG TABLET PO PRN (15:00)
[2023-03-31] MEDS ORDERED: ACETAMINOPHEN 325 MG TABLET PO PRN (15:00)
[2023-03-31] MEDS ORDERED: IV D5/0.45 NACL 1,000 ML IV PRN (15:00)
[2023-03-31] MEDS ORDERED: ONDANSETRON HCL/PF 4 MG/2 ML VIAL IVP PRN (15:00)
[2023-03-31] MEDS ORDERED: POTASSIUM CHLORIDE 20 MEQ TAB.PRT.SR PO ONE (15:30)
[2023-03-31 15:40] LABS: PHOSPHORUS 5.7 mg/dL (2.5-4.9)
[2023-03-31 15:45] LABS: THYROID STIMULATING HORMONE 1.624 uIU/mL (0.358-3.74)
[2023-03-31 16:00] VITALS: BP 111/66; TEMP 98.7; O2SAT 97
[2023-03-31] MEDS: buPROPion SR 150 MG TABLET.ER PO SCH (16:09)
[2023-03-31] MEDS: busPIRone 5 MG TABLET PO SCH (16:09)
[2023-03-31] MEDS: IV NS 0.9% 1,000 ML IV SCH (16:09)
[2023-03-31] MEDS ORDERED: IV NS 0.9% 1,000 ML BAG IV ONE (16:30)
[2023-03-31] MEDS ORDERED: HYDROMORPHONE 1 MG/1 ML DISP.SYRIN IV PRN (17:00)
[2023-03-31] MEDS: NICOTINE PATCH (14MG) 14 MG PATCH.TD24 TD SCH (17:00)
[2023-03-31] MEDS: MESALAMINE 400 MG CAP PO SCH ×2 (17:34→22:13)
[2023-03-31] MEDS: VANCOMYCIN HCL 125 MG/2.5 ML ORAL.SUSP PO SCH ×2 (17:34→23:27)
[2023-03-31] MEDS: dexaMETHasone SOD PHOSPHATE 10 MG/ML VIAL IV SCH ×2 (17:34→23:27)
[2023-03-31] MEDS: METRONIDAZOLE 500MG/ NS 100ML 500 MG in PREMIX 1 EA IV SCH ×2 (17:34→23:27)
[2023-03-31 20:00] VITALS: BP 121/68; TEMP 98.2; O2SAT 97
[2023-03-31 20:46] LABS: BASOPHILS % (AUTO) 0.1 % (0.0-2.0); EOSINOPHILS % (AUTO) 0.1 % (0.0-6.0); HEMATOCRIT 32 % (39-51); HEMOGLOBIN 10.6 g/dL (13.5-17.5); LYMPHOCYTES # (AUTO) 0.4 K/uL (0.8-4.8); LYMPHOCYTES % (AUTO) 4.3 % (20.0-44.0); MEAN CORPUSCULAR HEMOGLOBIN 34 PG (26.0-33.0); MEAN CORPUSCULAR HGB CONC 33 g/dl (31.0-36.0); MEAN CORPUSCULAR VOLUME 101 fL (80-96); MONOCYTES # (AUTO) 0.1 K/uL (0.1-1.30); MONOCYTES % (AUTO) 1.2 % (2.0-12.0); NEUTROPHILS # (AUTO) 9.9 K/uL (1.8-8.9); NEUTROPHILS % (AUTO) 94.3 % (43.0-81.0); PLATELET COUNT (AUTO) 164 K/uL (150-450); RED BLOOD CELL COUNT(AUTO) 3.15 MIL/uL (4.5-6.0); RED CELL DISTRIBUTION WIDTH 14.3 % (11.5-15.0); WHITE BLOOD COUNT (AUTO) 10.5 K/uL (4.3-11.0)
[2023-03-31 20:54] LABS: CALCIUM, SERUM 7.8 mg/dL (8.5-10.1); CREATININE 6.5 mg/dL (0.6-1.3); POTASSIUM 3.4 mmol/L (3.5-5.1)
[2023-03-31] MEDS: QUETIAPINE FUMARATE 25 MG TABLET PO SCH (22:14)
[2023-04-01] VITALS: BP 118/74; TEMP 97.6; O2SAT 97
[2023-04-01] MEDS: IV NS 0.9% 1,000 ML IV SCH ×3 (02:05→23:16)
[2023-04-01] MEDS: HYDROMORPHONE 1 MG/1 ML DISP.SYRIN IV PRN ×3 (02:50→21:50)
[2023-04-01] MEDS ORDERED: diphenhydrAMINE HCL ELIX 25 MG/10 ML UDC PO ONE (03:00)
[2023-04-01] MEDS ORDERED: diphenhydrAMINE HCL 50 MG/ML VIAL IV ONE ×2 (03:00→20:30)
[2023-04-01 04:00] VITALS: BP 146/60; TEMP 98; O2SAT 97
[2023-04-01] MEDS: dexaMETHasone SOD PHOSPHATE 10 MG/ML VIAL IV SCH ×3 (05:27→17:16)
[2023-04-01] MEDS: VANCOMYCIN HCL 125 MG/2.5 ML ORAL.SUSP PO SCH ×3 (05:27→17:17)
[2023-04-01] MEDS: METRONIDAZOLE 500MG/ NS 100ML 500 MG in PREMIX 1 EA IV SCH ×3 (05:27→17:17)
[2023-04-01 07:11] LABS: HEMATOCRIT 32 % (39-51); HEMOGLOBIN 10.7 g/dL (13.5-17.5); LYMPHOCYTES # (AUTO) 0.5 K/uL (0.8-4.8); LYMPHOCYTES % (AUTO) 4.7 % (20.0-44.0); MEAN CORPUSCULAR HEMOGLOBIN 34 PG (26.0-33.0); MEAN CORPUSCULAR HGB CONC 34 g/dl (31.0-36.0); MEAN CORPUSCULAR VOLUME 101 fL (80-96); MONOCYTES # (AUTO) 0.2 K/uL (0.1-1.30); MONOCYTES % (AUTO) 1.9 % (2.0-12.0); NEUTROPHILS # (AUTO) 9.4 K/uL (1.8-8.9); NEUTROPHILS % (AUTO) 93.4 % (43.0-81.0); PLATELET COUNT (AUTO) 166 K/uL (150-450); RED BLOOD CELL COUNT(AUTO) 3.17 MIL/uL (4.5-6.0); RED CELL DISTRIBUTION WIDTH 13.7 % (11.5-15.0); WHITE BLOOD COUNT (AUTO) 10.1 K/uL (4.3-11.0)
[2023-04-01 07:38] LABS: CREATININE 4.1 mg/dL (0.6-1.3); MAGNESIUM 1.7 mg/dL (1.8-2.4); PHOSPHORUS 3.4 mg/dL (2.5-4.9); POTASSIUM 3.8 mmol/L (3.5-5.1)
[2023-04-01 08:00] VITALS: BP 117/71; TEMP 98.1; O2SAT 97
[2023-04-01] MEDS: NICOTINE PATCH (14MG) 14 MG PATCH.TD24 TD SCH (08:56)
[2023-04-01] MEDS: buPROPion SR 150 MG TABLET.ER PO SCH ×2 (08:56→17:17)
[2023-04-01] MEDS: CHOLECALCIFEROL 1,000 UNIT TABLET (VIT D3) PO SCH (08:56)
[2023-04-01] MEDS: PANTOPRAZOLE 40 MG TABLET.DR PO SCH (08:57)
[2023-04-01] MEDS: CYANOCOBALAMIN 500 MCG TABLET PO SCH (08:57)
[2023-04-01] MEDS: FOLIC ACID 1 MG TABLET PO SCH (08:58)
[2023-04-01] MEDS: busPIRone 5 MG TABLET PO SCH ×2 (08:58→17:17)
[2023-04-01] MEDS: FERROUS SULFATE (325 MG) 325 MG/TAB TABLET PO SCH (08:58)
[2023-04-01] MEDS: MESALAMINE 400 MG CAP PO SCH ×4 (08:58→21:48)
[2023-04-01] MEDS ORDERED: diphenhydrAMINE HCL 50 MG/ML VIAL IV PRN (09:00)
[2023-04-01] MEDS ORDERED: diphenhydrAMINE HCL ELIX 25 MG/10 ML UDC PO PRN (11:30)
[2023-04-01 12:00] VITALS: BP 118/68; TEMP 98; O2SAT 97
[2023-04-01] MEDS: CEFTRIAXONE 1 G in IV D5W 50 ML IV SCH (15:06)
[2023-04-01 16:00] VITALS: BP 145/90; TEMP 98; O2SAT 97
[2023-04-01 20:00] VITALS: BP 145/85; TEMP 98.7; O2SAT 94
[2023-04-01] MEDS ORDERED: MAG HYDROX/AL HYDROX/SIMETH 30 ML UDC PO PRN (20:30)
[2023-04-01] MEDS: QUETIAPINE FUMARATE 25 MG TABLET PO SCH (21:48)
[2023-04-02] MEDS: dexaMETHasone SOD PHOSPHATE 10 MG/ML VIAL IV SCH ×3 (00:16→12:21)
[2023-04-02] MEDS: VANCOMYCIN HCL 125 MG/2.5 ML ORAL.SUSP PO SCH ×4 (00:16→17:51)
[2023-04-02] MEDS: METRONIDAZOLE 500MG/ NS 100ML 500 MG in PREMIX 1 EA IV SCH ×3 (00:16→13:33)
[2023-04-02 04:00] VITALS: BP 145/85; TEMP 98.7; O2SAT 94
[2023-04-02] MEDS: HYDROMORPHONE 1 MG/1 ML DISP.SYRIN IV PRN ×2 (05:31→11:03)
[2023-04-02 06:03] LABS: BASOPHILS % (AUTO) 0.1 % (0.0-2.0); HEMATOCRIT 31 % (39-51); HEMOGLOBIN 10.3 g/dL (13.5-17.5); LYMPHOCYTES # (AUTO) 0.5 K/uL (0.8-4.8); LYMPHOCYTES % (AUTO) 4.1 % (20.0-44.0); MEAN CORPUSCULAR HEMOGLOBIN 34 PG (26.0-33.0); MEAN CORPUSCULAR HGB CONC 34 g/dl (31.0-36.0); MEAN CORPUSCULAR VOLUME 100 fL (80-96); MONOCYTES # (AUTO) 0.8 K/uL (0.1-1.30); MONOCYTES % (AUTO) 5.9 % (2.0-12.0); NEUTROPHILS # (AUTO) 11.8 K/uL (1.8-8.9); NEUTROPHILS % (AUTO) 89.9 % (43.0-81.0); PLATELET COUNT (AUTO) 177 K/uL (150-450); RED BLOOD CELL COUNT(AUTO) 3.05 MIL/uL (4.5-6.0); WHITE BLOOD COUNT (AUTO) 13.1 K/uL (4.3-11.0)
[2023-04-02 06:18] LABS: BILIRUBIN,TOTAL 0.3 mg/dL (0.2-1.0); CALCIUM, SERUM 8.4 mg/dL (8.5-10.1); CREATININE 2.1 mg/dL (0.6-1.3); MAGNESIUM 1.9 mg/dL (1.8-2.4); PHOSPHORUS 2.6 mg/dL (2.5-4.9); POTASSIUM 3.1 mmol/L (3.5-5.1); TOTAL PROTEIN, SERUM 8.4 g/dL (6.4-8.2)
[2023-04-02 06:39] LABS: ALBUMIN 3.4 g/dL (3.4-5.0)
[2023-04-02] MEDS: IV NS 0.9% 1,000 ML IV SCH (07:30)
[2023-04-02 08:00] VITALS: BP 148/99; TEMP 97.8; O2SAT 99
[2023-04-02] MEDS: buPROPion SR 150 MG TABLET.ER PO SCH ×2 (08:41→17:44)
[2023-04-02] MEDS: FERROUS SULFATE (325 MG) 325 MG/TAB TABLET PO SCH (08:41)
[2023-04-02] MEDS: CHOLECALCIFEROL 1,000 UNIT TABLET (VIT D3) PO SCH (08:41)
[2023-04-02] MEDS: CYANOCOBALAMIN 500 MCG TABLET PO SCH (08:41)
[2023-04-02] MEDS: busPIRone 5 MG TABLET PO SCH ×2 (08:42→17:44)
[2023-04-02] MEDS: NICOTINE PATCH (14MG) 14 MG PATCH.TD24 TD SCH ×2 (08:42→09:00)
[2023-04-02] MEDS: PANTOPRAZOLE 40 MG TABLET.DR PO SCH (08:42)
[2023-04-02] MEDS: MESALAMINE 400 MG CAP PO SCH ×3 (08:42→17:44)
[2023-04-02] MEDS: FOLIC ACID 1 MG TABLET PO SCH (08:46)
[2023-04-02] MEDS ORDERED: diphenhydrAMINE HCL 50 MG/ML VIAL IV ONE (09:30)
[2023-04-02] MEDS ORDERED: POTASSIUM CHLORIDE 20 MEQ TAB.PRT.SR PO SCH (11:00)
[2023-04-02] MEDS ORDERED: POTASSIUM CHLORIDE 10 MEQ TABLET.SA PO ONE (11:00)
[2023-04-02] MEDS: POTASSIUM CL. PREMIX PERIPHER. 50 ML IV SCH ×3 (12:21→14:46)
[2023-04-02] MEDS: CEFTRIAXONE 1 G in IV D5W 50 ML IV SCH (14:51)
[2023-04-02 16:00] VITALS: BP 153/91; TEMP 97.8; O2SAT 99
[2023-04-02] MEDS ORDERED: HYDROMORPHONE 1 MG/1 ML DISP.SYRIN IV ONE (16:30)
[2023-04-02] MEDS ORDERED: oxyCODONE/APAP (5/325 MG) 1 UDTAB TABLET PO PRN (17:30)
[2023-04-02 20:00] VITALS: BP 145/88; TEMP 98; O2SAT 99
== END 2023-04-02 20:50 | disposition home or self-care (01) | DRG 245 ==
LOC: ER 11:46 → MEDSG1 15:22 → TELE1 15:33 → MEDSG1 18:26
PROC: 05H533Z Insertion of Infusion Device into Right Subclavian Vein, Percutaneous Approach (ICD-10-PCS; principal; 2023-03-31)
PROC: B546ZZA Ultrasonography of Right Subclavian Vein, Guidance (ICD-10-PCS; 2023-03-31)
DX: K50.911 Crohn's disease, unspecified, with rectal bleeding (principal); N17.0 Acute kidney failure with tubular necrosis; K50.913 Crohn's disease, unspecified, with fistula; E87.6 Hypokalemia; K57.30 Diverticulosis of large intestine without perforation or abscess without bleeding; E87.1 Hypo-osmolality and hyponatremia; E66.9 Obesity, unspecified; F32.A Depression, unspecified; I10 Essential (primary) hypertension; Z86.711 Personal history of pulmonary embolism; Z86.718 Personal history of other venous thrombosis and embolism; Z87.440 Personal history of urinary (tract) infections; Z87.891 Personal history of nicotine dependence; Z20.822 Contact with and (suspected) exposure to COVID-19; E86.0 Dehydration; Z68.38 Body mass index [BMI] 38.0-38.9, adult; D53.9 Nutritional anemia, unspecified; K60.3 Anal fistula; K42.9 Umbilical hernia without obstruction or gangrene; N26.1 Atrophy of kidney (terminal)
CPT/HCPCS: 36415; 71045-TC; 80048-TC; 80053-TC; 80076-TC; 82272-TC; 83605-TC; 83690-TC; 83735-TC; 84100-TC; 84443-TC; 85025-TC; 87040-TC; 97112-TC; 97116-TC; 97530-TC; A4216; A4223; A6253; A6403; G0378; J0696; J1100; J1170; J1200; J2405; J2930; J3370; J3480; J7030; J7050; J7060; Q0163

== ENCOUNTER 2023-04-28 16:17 | Inpatient (IN) | payer OTHER ==
[~2023-04-28] VITALS: Ht 177.8 cm; Wt 135.2 kg
[~2023-04-28 16:17] MED LIST changes: -APIX5TAB PO; -ASPI-1420 PO; -CEPH500C2 PO; +CHOL100043 PO; +CYAN-51 PO; -HYDR28.32 TP; +LISI40TA13 PO; -NITR100C PO; -ONDA4TAB5 PO
[2023-04-28] MEDS ORDERED: IV NS 0.9% 1,000 ML BAG IV ONE (16:30)
[2023-04-28 17:38] LABS: BASOPHILS % (AUTO) 0.4 % (0.0-2.0); EOSINOPHILS # (AUTO) 0.2 K/uL (0.0-0.7); HEMATOCRIT 31 % (39-51); HEMOGLOBIN 10.2 g/dL (13.5-17.5); LYMPHOCYTES # (AUTO) 1.8 K/uL (0.8-4.8); LYMPHOCYTES % (AUTO) 23.8 % (20.0-44.0); MEAN CORPUSCULAR HEMOGLOBIN 33 PG (26.0-33.0); MEAN CORPUSCULAR HGB CONC 33 g/dl (31.0-36.0); MEAN CORPUSCULAR VOLUME 100 fL (80-96); MONOCYTES # (AUTO) 0.6 K/uL (0.1-1.30); MONOCYTES % (AUTO) 7.5 % (2.0-12.0); NEUTROPHILS # (AUTO) 4.9 K/uL (1.8-8.9); NEUTROPHILS % (AUTO) 65.3 % (43.0-81.0); PLATELET COUNT (AUTO) 299 K/uL (150-450); RED BLOOD CELL COUNT(AUTO) 3.11 MIL/uL (4.5-6.0); RED CELL DISTRIBUTION WIDTH 13.9 % (11.5-15.0); WHITE BLOOD COUNT (AUTO) 7.5 K/uL (4.3-11.0)
[2023-04-28 17:54] VITALS: O2SAT 100
[2023-04-28 17:57] LABS: ALBUMIN 2.8 g/dL (3.4-5.0); BILIRUBIN,DIRECT 0.1 mg/dL (0.0-0.2); BILIRUBIN,TOTAL 0.1 mg/dL (0.2-1.0); CALCIUM, SERUM 8.5 mg/dL (8.5-10.1); CREATININE 1.2 mg/dL (0.6-1.3); POTASSIUM 3.7 mmol/L (3.5-5.1); TOTAL PROTEIN, SERUM 7.7 g/dL (6.4-8.2)
[2023-04-28 18:04] LABS: LACTIC ACID 1.5 mmol/L (0.4-2.0)
[2023-04-28 18:39] LABS: APPEARANCE,URINE CLEAR (CLEAR); BILIRUBIN,URINE NEGATIVE (NEGATIVE); BLOOD, URINE NEGATIVE Ery/uL (NEGATIVE); COLOR,URINE YELLOW (YELLOW); KETONES,URINE NEGATIVE (NEGATIVE); LEUKOCYTE ESTERASE ,URINE TRACE (NEGATIVE); NITRITE, URINE NEGATIVE (NEGATIVE); PROTEIN,URINE NEGATIVE (NEGATIVE); UGLUCOSE NEGATIVE (NEGATIVE); UROBILINOGEN,URINE 0.2 EU/dL (0.2)
[2023-04-28 18:58] LABS: RBC,URINE NONE SEEN /HPF (0-2)
[2023-04-28 18:59] LABS: ADD URINE CULTURE NO; BACTERIA,URINE 1+ /HPF (None Seen)
[2023-04-28] MEDS ORDERED: MAG HYDROX/AL HYDROX/SIMETH 30 ML UDC PO PRN (19:00)
[2023-04-28] MEDS ORDERED: ONDANSETRON HCL/PF 4 MG/2 ML VIAL IVP PRN (19:00)
[2023-04-28] MEDS ORDERED: MORPHINE SULFATE INJ 2 MG/ML DISP.SYRIN IV PRN (19:00)
[2023-04-28] MEDS ORDERED: Z GUARD REMEDY 4 OZ OINT TP PRN (19:00)
[2023-04-28] MEDS ORDERED: ACETAMINOPHEN 325 MG TABLET PO PRN (19:00)
[2023-04-28] MEDS ORDERED: IV NS 0.9% 1,000 ML IV PRN (19:00)
[2023-04-28] MEDS ORDERED: methylPREDNISolone SOD SUCC 40 MG/ML VIAL IV SCH (19:00)
[2023-04-28] MEDS ORDERED: MAGNESIUM HYDROXIDE 30 ML UDC PO PRN (19:00)
[2023-04-28] MEDS ORDERED: HYDROMORPHONE 1 MG/1 ML DISP.SYRIN IV ONE (20:00)
[2023-04-28] MEDS ORDERED: ONDANSETRON HCL/PF 4 MG/2 ML VIAL IV ONE (20:00)
[2023-04-28] MEDS ORDERED: ONDANSETRON HCL/PF 4 MG/2 ML VIAL ONE (20:05)
[2023-04-28] MEDS ORDERED: HYDROMORPHONE 1 MG/1 ML DISP.SYRIN ONE (20:05)
[2023-04-28 20:30] VITALS: BP 123/92; TEMP 98.2; O2SAT 99
[2023-04-28] MEDS: methylPREDNISolone SOD SUCC 40 MG/ML VIAL IV SCH (21:50)
[2023-04-28] MEDS: QUETIAPINE FUMARATE 25 MG TABLET PO SCH (21:50)
[2023-04-28] MEDS: diphenhydrAMINE HCL 25 MG CAPSULE PO PRN (22:30)
[2023-04-28] MEDS: HYDROMORPHONE 1 MG/1 ML DISP.SYRIN IV PRN (22:30)
[2023-04-29] MEDS: HYDROMORPHONE 1 MG/1 ML DISP.SYRIN IV PRN ×4 (02:35→18:14)
[2023-04-29] MEDS ORDERED: HYDROMORPHONE 1 MG/1 ML DISP.SYRIN IV ONE (04:15)
[2023-04-29] MEDS: methylPREDNISolone SOD SUCC 40 MG/ML VIAL IV SCH ×3 (05:45→20:28)
[2023-04-29 07:30] VITALS: BP 122/88; TEMP 97.7; O2SAT 96
[2023-04-29] MEDS: PANTOPRAZOLE 40 MG TABLET.DR PO SCH (08:35)
[2023-04-29] MEDS: MESALAMINE 400 MG CAP PO SCH ×4 (08:35→20:27)
[2023-04-29] MEDS: LISINOPRIL (20MG) 20 MG TABLET PO SCH (08:36)
[2023-04-29] MEDS: diphenhydrAMINE HCL 50 MG/ML VIAL IV PRN ×2 (08:37→19:43)
[2023-04-29] MEDS: METOPROLOL TARTRATE 25 MG TABLET PO SCH ×2 (08:37→18:07)
[2023-04-29] MEDS: NEOMY SULF/BACITRAC ZN/POLY 15 GM TUBE TP SCH (12:24)
[2023-04-29] MEDS: HYDROGEL DRESSING 90 GM TUBE TP SCH (12:24)
[2023-04-29] MEDS: METRONIDAZOLE 500 MG TABLET PO SCH ×2 (12:27→18:10)
[2023-04-29 16:00] VITALS: BP 123/95; TEMP 98.2; O2SAT 96
[2023-04-29] MEDS: CLOTRIMAZOLE 1% 15 GM TUBE TP SCH (17:00)
[2023-04-29 20:00] VITALS: BP 129/84; TEMP 97.2; O2SAT 98
[2023-04-29] MEDS: QUETIAPINE FUMARATE 25 MG TABLET PO SCH (21:07)
[2023-04-29] MEDS ORDERED: VANCOMYCIN 2 GM in IV D5W 500 ML IV ONE (23:00)
[2023-04-29] MEDS ORDERED: VANCOMYCIN 1 GM /D5W 250 ML PB IV ONE (23:29)
[2023-04-30] MEDS: METRONIDAZOLE 500 MG TABLET PO SCH ×4 (00:07→12:00)
[2023-04-30] MEDS: HYDROMORPHONE 1 MG/1 ML DISP.SYRIN IV PRN ×3 (00:08→15:12)
[2023-04-30] MEDS: diphenhydrAMINE HCL 50 MG/ML VIAL IV PRN ×4 (01:47→21:24)
[2023-04-30] MEDS: methylPREDNISolone SOD SUCC 40 MG/ML VIAL IV SCH ×3 (04:51→14:13)
[2023-04-30 08:00] VITALS: BP 137/76; TEMP 97.3; O2SAT 97
[2023-04-30] MEDS: PANTOPRAZOLE 40 MG TABLET.DR PO SCH (09:32)
[2023-04-30] MEDS: METOPROLOL TARTRATE 25 MG TABLET PO SCH ×2 (09:33→16:39)
[2023-04-30] MEDS: MESALAMINE 400 MG CAP PO SCH ×4 (09:33→21:23)
[2023-04-30] MEDS: LISINOPRIL (20MG) 20 MG TABLET PO SCH (09:34)
[2023-04-30] MEDS: HYDROGEL DRESSING 90 GM TUBE TP SCH (09:51)
[2023-04-30] MEDS: NEOMY SULF/BACITRAC ZN/POLY 15 GM TUBE TP SCH (09:51)
[2023-04-30] MEDS: CLOTRIMAZOLE 1% 15 GM TUBE TP SCH ×2 (09:51→17:04)
[2023-04-30] MEDS ORDERED: VANCOMYCIN 1 GM in IV D5W 250 ML IV SCH (11:00)
[2023-04-30] MEDS ORDERED: VANCOMYCIN 1.25 GM in IV D5W 250 ML IV SCH (11:00)
[2023-04-30 16:00] VITALS: BP 142/100; TEMP 97.5; O2SAT 97
[2023-04-30] MEDS ORDERED: CLONIDINE HCL 0.1 MG TABLET PO PRN (18:00)
[2023-04-30 20:00] VITALS: BP 135/94; TEMP 98.8; O2SAT 95
[2023-04-30] MEDS ORDERED: HYDROMORPHONE 1 MG/1 ML DISP.SYRIN IV ONE (22:00)
[2023-04-30] MEDS: QUETIAPINE FUMARATE 25 MG TABLET PO SCH ×2 (22:00→23:21)
[2023-05-01] MEDS: diphenhydrAMINE HCL 50 MG/ML VIAL IV PRN ×3 (04:56→18:45)
[2023-05-01 08:00] VITALS: BP 143/92; TEMP 98.8; O2SAT 96
[2023-05-01] MEDS: PANTOPRAZOLE 40 MG TABLET.DR PO SCH ×4 (08:18→21:16)
[2023-05-01] MEDS: MESALAMINE 400 MG CAP PO SCH ×5 (09:00→21:16)
[2023-05-01] MEDS: LISINOPRIL (20MG) 20 MG TABLET PO SCH (09:00)
[2023-05-01] MEDS: METOPROLOL TARTRATE 25 MG TABLET PO SCH ×2 (09:00→17:00)
[2023-05-01] MEDS ORDERED: MIDAZOLAM HCL 2 MG/2ML VIAL ONE (11:37)
[2023-05-01 11:38] LABS: CALCIUM, SERUM 8.6 mg/dL (8.5-10.1); CREATININE 1.1 mg/dL (0.6-1.3); POTASSIUM 3.8 mmol/L (3.5-5.1)
[2023-05-01 11:44] LABS: BASOPHILS # (AUTO) 0.1 K/uL (0.0-0.2); BASOPHILS % (AUTO) 0.4 % (0.0-2.0); HEMATOCRIT 32 % (39-51); HEMOGLOBIN 10.4 g/dL (13.5-17.5); LYMPHOCYTES # (AUTO) 2.2 K/uL (0.8-4.8); LYMPHOCYTES % (AUTO) 13.9 % (20.0-44.0); MEAN CORPUSCULAR HEMOGLOBIN 33 PG (26.0-33.0); MEAN CORPUSCULAR HGB CONC 33 g/dl (31.0-36.0); MEAN CORPUSCULAR VOLUME 100 fL (80-96); MONOCYTES # (AUTO) 1.3 K/uL (0.1-1.30); MONOCYTES % (AUTO) 8.4 % (2.0-12.0); NEUTROPHILS # (AUTO) 12.2 K/uL (1.8-8.9); NEUTROPHILS % (AUTO) 77.3 % (43.0-81.0); PLATELET COUNT (AUTO) 303 K/uL (150-450); RED BLOOD CELL COUNT(AUTO) 3.17 MIL/uL (4.5-6.0); RED CELL DISTRIBUTION WIDTH 13.9 % (11.5-15.0); WHITE BLOOD COUNT (AUTO) 15.8 K/uL (4.3-11.0)
[2023-05-01] MEDS ORDERED: METOCLOPRAMIDE HCL 10 MG/2 ML VIAL ONE (12:00)
[2023-05-01] MEDS ORDERED: AMPICILLIN 3 GM in IV NS 0.9% 100 ML IV SCH (13:30)
[2023-05-01] MEDS: AMPICILLIN 3 GM in IV NS 0.9% 100 ML IV SCH ×3 (15:00→21:15)
[2023-05-01] MEDS: CLOTRIMAZOLE 1% 15 GM TUBE TP SCH ×2 (15:09→17:00)
[2023-05-01] MEDS: HYDROGEL DRESSING 90 GM TUBE TP SCH (15:24)
[2023-05-01] MEDS: NEOMY SULF/BACITRAC ZN/POLY 15 GM TUBE TP SCH (15:25)
[2023-05-01 17:39] LABS: OCCULT BLOOD STOOL NEGATIVE (NEGATIVE)
[2023-05-01 20:00] VITALS: BP 148/95; TEMP 98.2; O2SAT 96
[2023-05-01] MEDS: QUETIAPINE FUMARATE 25 MG TABLET PO SCH ×2 (21:18→22:00)
[2023-05-01] MEDS ORDERED: LORAZEPAM 0.5 MG TABLET PO ONE (23:30)
[2023-05-02] MEDS: AMPICILLIN 3 GM in IV NS 0.9% 100 ML IV SCH (03:00)
[2023-05-02] MEDS: NEOMY SULF/BACITRAC ZN/POLY 15 GM TUBE TP SCH (09:00)
[2023-05-02] MEDS: LISINOPRIL (20MG) 20 MG TABLET PO SCH (09:00)
[2023-05-02] MEDS: HYDROGEL DRESSING 90 GM TUBE TP SCH (09:00)
[2023-05-02] MEDS: PANTOPRAZOLE 40 MG TABLET.DR PO SCH (09:00)
[2023-05-02] MEDS: CLOTRIMAZOLE 1% 15 GM TUBE TP SCH (09:00)
[2023-05-02] MEDS: MESALAMINE 400 MG CAP PO SCH ×2 (09:00→12:32)
[2023-05-02] MEDS: diphenhydrAMINE HCL 25 MG CAPSULE PO PRN (09:00)
[2023-05-02] MEDS: METOPROLOL TARTRATE 25 MG TABLET PO SCH (09:00)
[2023-05-02] MEDS: diphenhydrAMINE HCL 50 MG/ML VIAL IV PRN (09:06)
[2023-05-02] MEDS ORDERED: VANCOMYCIN 2 GM in IV D5W 500 ML IV ONE (10:00)
[2023-05-02] MEDS ORDERED: VANCOMYCIN 1.25 GM in IV D5W 250 ML IV SCH (22:00)
== END 2023-05-02 13:05 | disposition left against medical advice (07) | DRG 245 ==
LOC: ER 16:38 → TRANSITION 19:55 → MED 20:37
PROVIDERS: ADMIT Internal Medicine; ATTEND Student in an Organized Health Care Education/Training Program
PROC: 05HB33Z Insertion of Infusion Device into Right Basilic Vein, Percutaneous Approach (ICD-10-PCS; principal; 2023-05-01)
PROC: 0DB68ZX Excision of Stomach, Via Natural or Artificial Opening Endoscopic, Diagnostic (ICD-10-PCS; 2023-05-01)
DX: K50.911 Crohn's disease, unspecified, with rectal bleeding (principal); E44.0 Moderate protein-calorie malnutrition; D53.9 Nutritional anemia, unspecified; I10 Essential (primary) hypertension; E66.9 Obesity, unspecified; Z68.41 Body mass index [BMI] 40.0-44.9, adult; E87.6 Hypokalemia; K31.84 Gastroparesis; K29.70 Gastritis, unspecified, without bleeding; K20.90 Esophagitis, unspecified without bleeding; Z93.3 Colostomy status; Z98.890 Other specified postprocedural states; Z87.19 Personal history of other diseases of the digestive system; F32.A Depression, unspecified; Z91.51 Personal history of suicidal behavior; Z88.5 Allergy status to narcotic agent; Z88.8 Allergy status to other drugs, medicaments and biological substances; Z79.899 Other long term (current) drug therapy; K43.2 Incisional hernia without obstruction or gangrene; T38.0X5A Adverse effect of glucocorticoids and synthetic analogues, initial encounter; Y92.9 Unspecified place or not applicable; Z86.711 Personal history of pulmonary embolism; Z86.718 Personal history of other venous thrombosis and embolism; Z87.440 Personal history of urinary (tract) infections; F64.9 Gender identity disorder, unspecified; Z86.59 Personal history of other mental and behavioral disorders
CPT/HCPCS: 36415; 80048-TC; 80076-TC; 80202-TC; 81001; 82272-TC; 82962-TC; 83605-TC; 83690-TC; 85025-TC; 87040-TC; 88305-TC; 88313-TC; 88342; 89055; 97112-TC; 97116-TC; 97530-TC; A4223; A6248; G0378; J0290; J1170; J1200; J2250; J2405; J2704; J2765; J2920; J3370; J3490; J7030; J7060; Q0163

== ENCOUNTER 2023-11-16 07:36 | Emergency (ER) | payer OTHER ==
[~2023-11-16] VITALS: Ht 172.7 cm; Wt 129.7 kg
[~2023-11-16 07:36] MED LIST changes: -BUPR150T10 PO; -BUSP5TAB3 PO; -LORA-259 PO
[2023-11-16] MEDS ORDERED: IOHEXOL-350 100 ML VIAL IV ONE (07:51)
[2023-11-16] MEDS ORDERED: IV NS 0.9% 250 ML IV ONE (07:51)
[2023-11-16 08:10] LABS: BASOPHILS % (AUTO) 0.2 % (0.0-2.0); EOSINOPHILS # (AUTO) 0.1 K/uL (0.0-0.7); EOSINOPHILS % (AUTO) 1.1 % (0.0-6.0); HEMATOCRIT 33 % (39-51); HEMOGLOBIN 10.9 g/dL (13.5-17.5); LYMPHOCYTES # (AUTO) 2.1 K/uL (0.8-4.8); LYMPHOCYTES % (AUTO) 20.4 % (20.0-44.0); MEAN CORPUSCULAR HEMOGLOBIN 34 PG (26.0-33.0); MEAN CORPUSCULAR HGB CONC 33 g/dl (31.0-36.0); MEAN CORPUSCULAR VOLUME 102 fL (80-96); MONOCYTES # (AUTO) 0.9 K/uL (0.1-1.30); MONOCYTES % (AUTO) 8.7 % (2.0-12.0); NEUTROPHILS % (AUTO) 69.6 % (43.0-81.0); PLATELET COUNT (AUTO) 358 K/uL (150-450); RED BLOOD CELL COUNT(AUTO) 3.25 MIL/uL (4.5-6.0); RED CELL DISTRIBUTION WIDTH 14.7 % (11.5-15.0); WHITE BLOOD COUNT (AUTO) 10.1 K/uL (4.3-11.0)
[2023-11-16 08:27] LABS: INR 1.04 (0.91-1.10); PARTIAL THROMBOPLASTIN TIME 24.6 SEC (24.3-34.3)
[2023-11-16] MEDS ORDERED: ONDANSETRON HCL/PF 4 MG/2 ML VIAL ONE (08:27)
[2023-11-16] MEDS: ONDANSETRON HCL/PF 4 MG/2 ML VIAL IV ONE (08:32)
[2023-11-16 08:34] LABS: ALANINE AMINOTRANSFERASE 20 U/L (12-78); ALBUMIN 3.1 g/dL (3.4-5.0); ALKALINE PHOSPHATASE 81 U/L (46-116); ASPARTATE AMINOTRANSFERASE 12 U/L (15-37); BILIRUBIN,DIRECT 0.1 mg/dL (0.0-0.2); BILIRUBIN,TOTAL 0.3 mg/dL (0.2-1.0); CALCIUM, SERUM 8.8 mg/dL (8.5-10.1); CARBON DIOXIDE 27 mmol/L (21-32); CHLORIDE 105 mmol/L (98-107); CREATININE 1.1 mg/dL (0.6-1.3); GLUCOSE 103 mg/dL (74-106); SODIUM SERUM 140 mmol/L (136-145); TOTAL PROTEIN, SERUM 8.2 g/dL (6.4-8.2); UREA NITROGEN, BLOOD 13 mg/dL (7-18)
[2023-11-16 09:03] LABS: APPEARANCE,URINE CLEAR (CLEAR); BILIRUBIN,URINE NEGATIVE (NEGATIVE); BLOOD, URINE NEGATIVE Ery/uL (NEGATIVE); COLOR,URINE YELLOW (YELLOW); KETONES,URINE NEGATIVE (NEGATIVE); LEUKOCYTE ESTERASE ,URINE NEGATIVE (NEGATIVE); NITRITE, URINE NEGATIVE (NEGATIVE); PH,URINE 5.5 (5.0-8.0); PROTEIN,URINE NEGATIVE (NEGATIVE); UGLUCOSE NEGATIVE (NEGATIVE); UROBILINOGEN,URINE 0.2 EU/dL (0.2)
[2023-11-16] MEDS ORDERED: diphenhydrAMINE HCL 50 MG/ML VIAL ONE (09:24)
[2023-11-16] MEDS ORDERED: PANTOPRAZOLE 40 MG VIAL ONE (09:24)
[2023-11-16] MEDS ORDERED: HYDROMORPHONE 1 MG/1 ML DISP.SYRIN ONE (09:25)
[2023-11-16] MEDS ORDERED: APIX5TAB PO (09:29)
[2023-11-16] MEDS ORDERED: BUPR-96 PO (09:29)
[2023-11-16] MEDS ORDERED: QUET200T PO (09:29)
[2023-11-16] MEDS: PANTOPRAZOLE 40 MG VIAL IV ONE (09:35)
[2023-11-16] MEDS: diphenhydrAMINE HCL 50 MG/ML VIAL IV ONE (09:36)
[2023-11-16] MEDS: HYDROMORPHONE 1 MG/1 ML DISP.SYRIN IV ONE (09:37)
[2023-11-16 13:00] VITALS: BP 146/84; TEMP 98.4; O2SAT 99
== END 2023-11-16 15:32 | disposition short-term general hospital (02) ==
LOC: ER 07:36
DX: I63.9 Cerebral infarction, unspecified (principal); D50.9 Iron deficiency anemia, unspecified; R53.1 Weakness; K92.2 Gastrointestinal hemorrhage, unspecified; K50.90 Crohn's disease, unspecified, without complications; Z88.8 Allergy status to other drugs, medicaments and biological substances; I11.9 Hypertensive heart disease without heart failure; F64.0 Transsexualism; F12.10 Cannabis abuse, uncomplicated
CPT/HCPCS: 99285; 70450; 96374; 71045; 96375 ×3; 93005; 70498; 70496; 74176; 85025; 80048; 80076; 81003; 36415; 84484; 85730; 86850; 82962; J1200; J2405; J7050; C9113; Q9967; J1170

== ENCOUNTER 2023-12-13 16:42 | Emergency (ER) | payer OTHER ==
[~2023-12-13] VITALS: Ht 152.4 cm; Wt 134.7 kg
[~2023-12-13 16:42] MED LIST changes: +APIX5TAB PO; +BUPR-96 PO; +QUET200T PO; -QUET25TA PO
[2023-12-13 16:43] VITALS: TEMP 98.1
[2023-12-13] MEDS ORDERED: ONDANSETRON HCL/PF 4 MG/2 ML VIAL ONE (18:43)
[2023-12-13] MEDS: IV NS 0.9% 1,000 ML BAG IV ONE (18:52)
[2023-12-13] MEDS: ONDANSETRON HCL/PF - ER 4 MG/2 ML VIAL IV ONE (18:53)
[2023-12-13 19:03] LABS: BASOPHILS # (AUTO) 0.1 K/uL (0.0-0.2); BASOPHILS % (AUTO) 1.2 % (0.0-2.0); EOSINOPHILS # (AUTO) 0.1 K/uL (0.0-0.7); EOSINOPHILS % (AUTO) 0.9 % (0.0-6.0); HEMATOCRIT 28 % (39-51); HEMOGLOBIN 9.5 g/dL (13.5-17.5); LYMPHOCYTES # (AUTO) 1.3 K/uL (0.8-4.8); LYMPHOCYTES % (AUTO) 17.7 % (20.0-44.0); MEAN CORPUSCULAR HEMOGLOBIN 35 PG (26.0-33.0); MEAN CORPUSCULAR HGB CONC 34 g/dl (31.0-36.0); MEAN CORPUSCULAR VOLUME 104 fL (80-96); MONOCYTES # (AUTO) 0.7 K/uL (0.1-1.30); MONOCYTES % (AUTO) 8.7 % (2.0-12.0); NEUTROPHILS # (AUTO) 5.3 K/uL (1.8-8.9); NEUTROPHILS % (AUTO) 71.5 % (43.0-81.0); PLATELET COUNT (AUTO) 259 K/uL (150-450); RED BLOOD CELL COUNT(AUTO) 2.74 MIL/uL (4.5-6.0); RED CELL DISTRIBUTION WIDTH 16.2 % (11.5-15.0); WHITE BLOOD COUNT (AUTO) 7.5 K/uL (4.3-11.0)
[2023-12-13 19:08] VITALS: BP 141/93; O2SAT 96
[2023-12-13 19:10] LABS: CALCIUM, SERUM 8.7 mg/dL (8.5-10.1); CARBON DIOXIDE 26 mmol/L (21-32); CHLORIDE 104 mmol/L (98-107); CREATININE 1.3 mg/dL (0.6-1.3); GLUCOSE 96 mg/dL (74-106); POTASSIUM 4.8 mmol/L (3.5-5.1); SODIUM SERUM 135 mmol/L (136-145); UREA NITROGEN, BLOOD 19 mg/dL (7-18)
[2023-12-13] MEDS ORDERED: CT SWABBABLE VALVE TRANS SET 1 EA INFUS.SET MC ONE (19:35)
[2023-12-13] MEDS ORDERED: IV NS 0.9% 250 ML IV ONE (19:35)
[2023-12-13] MEDS ORDERED: IOHEXOL-350 100 ML VIAL IV ONE (19:35)
[2023-12-13] MEDS ORDERED: KETOROLAC TROMETHAMINE 15 MG/ML VIAL ONE (19:57)
[2023-12-13] MEDS: KETOROLAC TROMETHAMINE 15 MG/ML VIAL IV ONE (19:59)
== END 2023-12-13 21:08 | disposition left against medical advice (07) ==
LOC: ER 16:45
DX: R07.89 Other chest pain (principal); K50.90 Crohn's disease, unspecified, without complications; R10.9 Unspecified abdominal pain; Z86.711 Personal history of pulmonary embolism; F17.200 Nicotine dependence, unspecified, uncomplicated; I10 Essential (primary) hypertension; Z98.890 Other specified postprocedural states; Z79.899 Other long term (current) drug therapy; Z88.5 Allergy status to narcotic agent; Z88.1 Allergy status to other antibiotic agents
CPT/HCPCS: 99285; 96374; 71045; 96361; 93005 ×2; 85025; 80048; 85378; 36415; 84484; 83880; J2405 ×2; J7030; J7050; Q9967; J1885

== ENCOUNTER 2024-03-28 22:14 | Emergency (ER) | payer OTHER ==
[~2024-03-28] VITALS: Ht 177.8 cm; Wt 104.3 kg
[2024-03-29] MEDS ORDERED: IOHEXOL-300 100 ML VIAL IV ONE (00:43)
[2024-03-29] MEDS ORDERED: CT SWABBABLE VALVE TRANS SET 1 EA INFUS.SET MC ONE (00:43)
[2024-03-29] MEDS ORDERED: IV NS 0.9% 250 ML IV ONE (00:43)
[2024-03-29] MEDS: diphenhydrAMINE HCL 50 MG/ML VIAL IV ONE (01:30)
[2024-03-29] MEDS: ONDANSETRON HCL/PF 4 MG/2 ML VIAL IV ONE (01:30)
[2024-03-29] MEDS: MORPHINE SULFATE INJ 2 MG/ML DISP.SYRIN IV ONE (01:30)
[2024-03-29] MEDS: KETOROLAC TROMETHAMINE 15 MG/ML VIAL IV ONE (01:30)
[2024-03-29 01:46] LABS: BASOPHILS % (AUTO) 0.3 % (0.0-2.0); EOSINOPHILS # (AUTO) 0.3 K/uL (0.0-0.7); EOSINOPHILS % (AUTO) 3.7 % (0.0-6.0); HEMATOCRIT 30 % (39-51); HEMOGLOBIN 10.2 g/dL (13.5-17.5); LYMPHOCYTES # (AUTO) 1.4 K/uL (0.8-4.8); LYMPHOCYTES % (AUTO) 17.3 % (20.0-44.0); MEAN CORPUSCULAR HEMOGLOBIN 34 PG (26.0-33.0); MEAN CORPUSCULAR HGB CONC 34 g/dl (31.0-36.0); MEAN CORPUSCULAR VOLUME 102 fL (80-96); MONOCYTES # (AUTO) 0.8 K/uL (0.1-1.30); MONOCYTES % (AUTO) 9.6 % (2.0-12.0); NEUTROPHILS # (AUTO) 5.7 K/uL (1.8-8.9); NEUTROPHILS % (AUTO) 69.1 % (43.0-81.0); PLATELET COUNT (AUTO) 193 K/uL (150-450); RED BLOOD CELL COUNT(AUTO) 2.98 MIL/uL (4.5-6.0); RED CELL DISTRIBUTION WIDTH 14.7 % (11.5-15.0); WHITE BLOOD COUNT (AUTO) 8.3 K/uL (4.3-11.0)
[2024-03-29] MEDS ORDERED: KETOROLAC TROMETHAMINE 15 MG/ML VIAL ONE (01:57)
[2024-03-29] MEDS ORDERED: ONDANSETRON HCL/PF 4 MG/2 ML VIAL ONE (01:57)
[2024-03-29] MEDS ORDERED: MORPHINE SULFATE INJ 2 MG/ML DISP.SYRIN ONE (01:57)
[2024-03-29] MEDS ORDERED: diphenhydrAMINE HCL 50 MG/ML VIAL ONE (01:57)
[2024-03-29 02:02] LABS: INR 1.07 (0.91-1.10); PARTIAL THROMBOPLASTIN TIME 28.4 SEC (24.3-34.3); PROTHROMBIN TIME 11.3 SECS (9.2-11.1)
[2024-03-29 02:03] LABS: LACTIC ACID 1.5 mmol/L (0.4-2.0)
[2024-03-29 02:08] LABS: CALCIUM, SERUM 8.1 mg/dL (8.5-10.1); CARBON DIOXIDE 27 mmol/L (21-32); CHLORIDE 109 mmol/L (98-107); CREATININE 1.4 mg/dL (0.6-1.3); GLUCOSE 95 mg/dL (74-106); SODIUM SERUM 146 mmol/L (136-145); UREA NITROGEN, BLOOD 19 mg/dL (7-18)
[2024-03-29 02:12] LABS: ALANINE AMINOTRANSFERASE 106 U/L (12-78); ALBUMIN 2.8 g/dL (3.4-5.0); ALKALINE PHOSPHATASE 78 U/L (46-116); ASPARTATE AMINOTRANSFERASE 129 U/L (15-37); BILIRUBIN,DIRECT 0.1 mg/dL (0.0-0.2); BILIRUBIN,TOTAL 0.4 mg/dL (0.2-1.0); TOTAL PROTEIN, SERUM 7.5 g/dL (6.4-8.2)
[2024-03-29] MEDS: IV NS 0.9% 1,000 ML BAG IV ONE (04:00)
[2024-03-29] MEDS: predniSONE 20 MG TABLET PO ONE (04:13)
[2024-03-29] MEDS: POTASSIUM CHLORIDE 20 MEQ TAB.PRT.SR PO ONE (04:14)
[2024-03-29] MEDS ORDERED: POTASSIUM CL. PREMIX PERIPHER. 50 ML ONE ×4 (04:17→07:44)
[2024-03-29] MEDS: POTASSIUM CL. PREMIX PERIPHER. 50 ML IV SCH (04:30)
[2024-03-29] MEDS: methylPREDNISolone SOD SUCC 40 MG/ML VIAL IV ONE (04:30)
[2024-03-29] MEDS ORDERED: methylPREDNISolone SOD SUCC 40 MG/ML VIAL ONE (04:54)
[2024-03-29] MEDS ORDERED: PRED20TA PO (05:13)
[2024-03-29 05:50] LABS: APPEARANCE,URINE SLIGHTLY CLOUDY (CLEAR); BILIRUBIN,URINE NEGATIVE (NEGATIVE); BLOOD, URINE NEGATIVE Ery/uL (NEGATIVE); COLOR,URINE YELLOW (YELLOW); KETONES,URINE NEGATIVE (NEGATIVE); LEUKOCYTE ESTERASE ,URINE NEGATIVE (NEGATIVE); NITRITE, URINE NEGATIVE (NEGATIVE); PROTEIN,URINE NEGATIVE (NEGATIVE); UGLUCOSE NEGATIVE (NEGATIVE); UROBILINOGEN,URINE 0.2 EU/dL (0.2)
[2024-03-29 05:56] LABS: ADD URINE CULTURE NO; BACTERIA,URINE Rare /HPF (None Seen); RBC,URINE 0-2 /HPF (0-2); SQUAMOUS EPITHELIAL CELL,UR Few /HPF (None Seen); WBC,URINE 0-2 /HPF (0-3)
[2024-03-29] MEDS ORDERED: OXYC-128 PO (05:56)
[2024-03-29] MEDS ORDERED: DIPH25CA83 PO (05:56)
[2024-03-29] MEDS ORDERED: KETO10TA2 PO (05:57)
[2024-03-29 10:48] LABS: AMPHETAMINE, URINE NEGATIVE (NEGATIVE); BARBITURATE, URINE NEGATIVE (NEGATIVE); CANNABINOID, URINE NEGATIVE (NEGATIVE); PHENCYCLIDINE SCREEN,URINE NEGATIVE (NEGATIVE)
[2024-03-29 10:55] LABS: BENZODIAZEPINE, URINE POSITIVE (NEGATIVE); COCCAINE, URINE POSITIVE (NEGATIVE); OPIATE, URINE POSITIVE (NEGATIVE)
[2024-03-29] MEDS ORDERED: NALO4SPR BNOSTRILS (14:58)
[2024-03-29 16:58] VITALS: BP 110/60; TEMP 98.8; O2SAT 93
[2024-03-30] MEDS ORDERED: ACETAMINOPHEN 325 MG TABLET ONE (04:08)
== END 2024-03-29 16:59 | disposition home or self-care (01) ==
LOC: ER 22:15
DX: K50.90 Crohn's disease, unspecified, without complications (principal); E87.6 Hypokalemia; I10 Essential (primary) hypertension; Z86.711 Personal history of pulmonary embolism; F17.200 Nicotine dependence, unspecified, uncomplicated; Z79.51 Long term (current) use of inhaled steroids; Z98.890 Other specified postprocedural states; Z79.899 Other long term (current) drug therapy; Z20.822 Contact with and (suspected) exposure to COVID-19; Z60.2 Problems related to living alone; Z88.5 Allergy status to narcotic agent; Z88.8 Allergy status to other drugs, medicaments and biological substances
CPT/HCPCS: 99285; 93005; 71045; 74177; 36415; 96365; 96366; 96375; 84145; 85025; 80048; 87086; 83605; 80076; 85652; 81001; 84484; 85730; 86140; 87426; 80320; 80307; 98960; J1200; J7512; J2919; J2405; J7050; J3480 ×4; A4223; J2270; Q9967; J1885; G0480

== ENCOUNTER 2024-03-29 19:24 | Emergency (ER) | payer OTHER ==
[~2024-03-29] VITALS: Ht 177.8 cm; Wt 104.3 kg
[~2024-03-29 19:24] MED LIST changes: +DIPH25CA83 PO; +KETO10TA2 PO; +NALO4SPR BNOSTRILS; +OXYC-128 PO; +PRED20TA PO
[2024-03-29 19:42] VITALS: TEMP 98.4
[2024-03-30 04:01] VITALS: BP 127/68; O2SAT 98
[2024-03-30] MEDS: ACETAMINOPHEN 325 MG TABLET PO ONE (04:17)
[2024-03-30 04:19] LABS: BASOPHILS % (AUTO) 0.3 % (0.0-2.0); EOSINOPHILS # (AUTO) 0.1 K/uL (0.0-0.7); EOSINOPHILS % (AUTO) 1.4 % (0.0-6.0); HEMATOCRIT 31 % (39-51); HEMOGLOBIN 10.6 g/dL (13.5-17.5); LYMPHOCYTES # (AUTO) 1.5 K/uL (0.8-4.8); LYMPHOCYTES % (AUTO) 16.7 % (20.0-44.0); MEAN CORPUSCULAR HEMOGLOBIN 35 PG (26.0-33.0); MEAN CORPUSCULAR HGB CONC 34 g/dl (31.0-36.0); MEAN CORPUSCULAR VOLUME 104 fL (80-96); MONOCYTES # (AUTO) 0.9 K/uL (0.1-1.30); MONOCYTES % (AUTO) 9.4 % (2.0-12.0); NEUTROPHILS # (AUTO) 6.6 K/uL (1.8-8.9); NEUTROPHILS % (AUTO) 72.2 % (43.0-81.0); PLATELET COUNT (AUTO) 196 K/uL (150-450); RED BLOOD CELL COUNT(AUTO) 3.01 MIL/uL (4.5-6.0); RED CELL DISTRIBUTION WIDTH 14.5 % (11.5-15.0); WHITE BLOOD COUNT (AUTO) 9.2 K/uL (4.3-11.0)
[2024-03-30 04:29] LABS: CALCIUM, SERUM 8.1 mg/dL (8.5-10.1); CREATININE 1.1 mg/dL (0.6-1.3); POTASSIUM 3.6 mmol/L (3.5-5.1)
== END 2024-03-30 06:02 | disposition left against medical advice (07) ==
LOC: ER 19:42
DX: R07.89 Other chest pain (principal); K62.5 Hemorrhage of anus and rectum; I10 Essential (primary) hypertension; F17.200 Nicotine dependence, unspecified, uncomplicated; Z79.899 Other long term (current) drug therapy; Z79.51 Long term (current) use of inhaled steroids; Z86.711 Personal history of pulmonary embolism; Z98.890 Other specified postprocedural states; Z60.2 Problems related to living alone; Z88.5 Allergy status to narcotic agent
CPT/HCPCS: 36415; 80048-TC; 84484-TC; 85025-TC

== ENCOUNTER 2025-04-01 14:28 | Inpatient (IN) | payer MEDICAID, OTHER ==
[~2025-04-01] VITALS: Ht 177.8 cm; Wt 136.1 kg
[~2025-04-01 14:28] MED LIST changes: -OXYC-128 PO
[2025-04-01 17:51] LABS: PLATELET COUNT (AUTO) 353 K/uL (150-450); RED BLOOD CELL COUNT(AUTO) 3.00 MIL/uL (4.5-6.0); RED CELL DISTRIBUTION WIDTH 15.7 % (11.5-15.0); WHITE BLOOD COUNT (AUTO) 10.0 K/uL (4.3-11.0)
[2025-04-01 17:59] LABS: CALCIUM, SERUM 8.5 mg/dL (8.5-10.1); CREATININE 1.1 mg/dL (0.6-1.3); SODIUM SERUM 135.0 mmol/L (136-145); UREA NITROGEN, BLOOD 14.0 mg/dL (7-18)
[2025-04-01 18:04] LABS: ASPARTATE AMINOTRANSFERASE 18.0 U/L (15-37); TOTAL PROTEIN, SERUM 8.3 g/dL (6.4-8.2)
[2025-04-01 18:06] LABS: INR 1.05 (0.91-1.10)
[2025-04-01] MEDS: IV NS 0.9% 1,000 ML BAG IV ONE (18:20)
[2025-04-01] MEDS: ONDANSETRON HCL/PF 4 MG/2 ML VIAL IV PRN (18:27)
[2025-04-01] MEDS: HYDROMORPHONE 1 MG/1 ML DISP.SYRIN IV STA (18:28)
[2025-04-01 18:56] VITALS: BP 123/77; TEMP 99; O2SAT 97
[2025-04-01] MEDS ORDERED: Z GUARD REMEDY 4 OZ OINT TP PRN (19:00)
[2025-04-01] MEDS ORDERED: MAGNESIUM HYDROXIDE 30 ML UDC PO PRN (19:00)
[2025-04-01] MEDS ORDERED: ACETAMINOPHEN 325 MG TABLET PO PRN (19:00)
[2025-04-01] MEDS ORDERED: MAG HYDROX/AL HYDROX/SIMETH 30 ML UDC PO PRN (19:00)
[2025-04-01 20:00] VITALS: BP 123/82; TEMP 98.6; O2SAT 97
[2025-04-01] MEDS: ASPIRIN 81 MG TAB.CHEW PO SCH (20:31)
[2025-04-01] MEDS: oxyCODONE/APAP (5/325 MG) 1 UDTAB TABLET PO PRN (20:31)
[2025-04-01] MEDS: ENOXAPARIN SODIUM 40 MG/0.4 ML DISP.SYRIN SQ SCH (20:33)
[2025-04-01] MEDS ORDERED: HYDROMORPHONE 1 MG/1 ML DISP.SYRIN IV PRN (21:00)
[2025-04-01] MEDS: ATORVASTATIN 40 MG TABLET PO SCH (22:27)
[2025-04-01] MEDS: HYDROMORPHONE 1 MG/1 ML DISP.SYRIN IV PRN (22:42)
[2025-04-02] VITALS: BP 145/98; TEMP 98.3; O2SAT 97
[2025-04-02] MEDS ORDERED: HYDROMORPHONE 1 MG/1 ML DISP.SYRIN IV PRN (01:00)
[2025-04-02 04:00] VITALS: BP 123/86; TEMP 98.8; O2SAT 96
[2025-04-02 05:38] LABS: PLATELET COUNT (AUTO) 345 K/uL (150-450); RED BLOOD CELL COUNT(AUTO) 3.15 MIL/uL (4.5-6.0); RED CELL DISTRIBUTION WIDTH 15.8 % (11.5-15.0); WHITE BLOOD COUNT (AUTO) 9.8 K/uL (4.3-11.0)
[2025-04-02 05:48] LABS: CALCIUM, SERUM 8.3 mg/dL (8.5-10.1); CREATININE 1.1 mg/dL (0.6-1.3); PHOSPHORUS 2.7 mg/dL (2.5-4.9); SODIUM SERUM 134.0 mmol/L (136-145); UREA NITROGEN, BLOOD 12.0 mg/dL (7-18)
[2025-04-02 07:56] LABS: OCCULT BLOOD STOOL NEGATIVE (NEGATIVE)
[2025-04-02 08:00] VITALS: BP 148/85; TEMP 98.4; O2SAT 97
[2025-04-02 12:00] VITALS: BP 135/88; TEMP 98.2; O2SAT 98
[2025-04-02 16:00] VITALS: BP 121/74; TEMP 98.8; O2SAT 100
[2025-04-02] MEDS ORDERED: BUPR-54 PO (18:26)
[2025-04-02] MEDS ORDERED: SULF500T8 PO (18:26)
[2025-04-02] MEDS ORDERED: QUET50TA79 PO (18:26)
[2025-04-02] MEDS ORDERED: FOLI0.4T6 PO (18:26)
[2025-04-02] MEDS ORDERED: MESA250C2 PO (18:26)
[2025-04-02] MEDS ORDERED: ACET325T53 PO (18:26)
[2025-04-02] MEDS ORDERED: APIX2.5T PO (18:26)
[2025-04-02] MEDS ORDERED: CHOL100062 PO (18:26)
[2025-04-02] MEDS ORDERED: ALLO100T25 PO (18:27)
[2025-04-02] MEDS ORDERED: CYAN100T9 PO (18:27)
[2025-04-02] MEDS ORDERED: FLUT16SP NS (18:27)
[2025-04-02] MEDS ORDERED: MESA400C3 PO (18:27)
[2025-04-02] MEDS ORDERED: LURA40TA PO (18:27)
[2025-04-02 20:00] VITALS: BP 137/73; TEMP 99; O2SAT 98
[2025-04-03] VITALS (7 sets, daily range): BP systolic 86–137; BP diastolic 73–86; TEMP 97.7–99; O2SAT 97–100
[2025-04-03] MEDS: ONDANSETRON HCL/PF 4 MG/2 ML VIAL IVP PRN (17:24)
[2025-04-03] MEDS: ENOXAPARIN SODIUM 40 MG/0.4 ML DISP.SYRIN SQ SCH (21:03)
[2025-04-03] MEDS: MUPIROCIN OINT 2% 22 GM TUBE NS SCH (21:23)
[2025-04-04] VITALS: BP 98/63; O2SAT 94
[2025-04-04 04:00] VITALS: BP 132/76; TEMP 97.9; O2SAT 95
[2025-04-04 07:43] LABS: PLATELET COUNT (AUTO) 303 K/uL (150-450); RED BLOOD CELL COUNT(AUTO) 2.79 MIL/uL (4.5-6.0); RED CELL DISTRIBUTION WIDTH 15.5 % (11.5-15.0); WHITE BLOOD COUNT (AUTO) 7.5 K/uL (4.3-11.0)
[2025-04-04 08:00] VITALS: BP 102/48; TEMP 97.9; O2SAT 97
[2025-04-04 08:19] LABS: CALCIUM, SERUM 8.4 mg/dL (8.5-10.1); CREATININE 0.9 mg/dL (0.6-1.3); PHOSPHORUS 3.0 mg/dL (2.5-4.9); SODIUM SERUM 140.0 mmol/L (136-145); UREA NITROGEN, BLOOD 9.0 mg/dL (7-18)
[2025-04-04] MEDS: MAGNESIUM OXIDE 400 MG TABLET PO ONE (10:05)
[2025-04-04] MEDS: HYDROMORPHONE 1 MG/1 ML DISP.SYRIN IV ONE (10:08)
[2025-04-04] MEDS ORDERED: HYDROCODONE/APAP 5/325MG TABLET PO PRN (10:30)
[2025-04-04 16:00] VITALS: BP 115/66; TEMP 97.9; O2SAT 100
[2025-04-05] MEDS ORDERED: HYDR-3973 PO (09:56)
[2025-04-05] MEDS ORDERED: ATOR40TA GT (10:08)
[2025-04-05] MEDS ORDERED: ASPI-1169 PO (10:08)
[2025-04-05] MEDS ORDERED: MUPI22OI7 (10:08)
== END 2025-04-05 11:52 | disposition home or self-care (01) | DRG 47 ==
LOC: ER 14:28 → TELE1 17:43 → MEDSG1 04-04 08:52
PROVIDERS: ADMIT Internal Medicine
PROC: 05HD33Z Insertion of Infusion Device into Right Cephalic Vein, Percutaneous Approach (ICD-10-PCS; principal; 2025-04-01)
DX: G45.9 Transient cerebral ischemic attack, unspecified (principal); E43 Unspecified severe protein-calorie malnutrition; I10 Essential (primary) hypertension; K50.90 Crohn's disease, unspecified, without complications; Z93.3 Colostomy status; Z98.890 Other specified postprocedural states; Z86.19 Personal history of other infectious and parasitic diseases; Z86.718 Personal history of other venous thrombosis and embolism; Z86.711 Personal history of pulmonary embolism; Z22.322 Carrier or suspected carrier of Methicillin resistant Staphylococcus aureus; K62.89 Other specified diseases of anus and rectum; K57.30 Diverticulosis of large intestine without perforation or abscess without bleeding; K42.9 Umbilical hernia without obstruction or gangrene; G89.29 Other chronic pain; E66.01 Morbid (severe) obesity due to excess calories; Z68.41 Body mass index [BMI] 40.0-44.9, adult; D53.9 Nutritional anemia, unspecified; F64.0 Transsexualism; K60.30 Anal fistula, unspecified; L73.2 Hidradenitis suppurativa
CPT/HCPCS: 36415; 70450-TC; 80048-TC; 80076-TC; 82272-TC; 82962-TC; 83735-TC; 84100-TC; 84484-TC; 85025-TC; 85730-TC; 86850-TC; 87040-TC; 87081-TC; 92526; 92611; 93307-TC; 97110-TC; 97112-TC; 97116-TC; 97530-TC; 97535-TC; A6403; G0378; J1171; J1200; J1650; J2405; J7030